=== PATIENT | female | born 1955 | race Caucasian/White ===

== ENCOUNTER 2017-10-09 17:06 | Inpatient (IN) | payer OTHER ==
[2017-10-09] MEDS: ONDANSETRON 4MG/2ML VIAL (J2405) IV (17:15)
[2017-10-09] MEDS: NS 1,000 ML IV (17:54)
[2017-10-09 17:58] LABS: BASO % 0.2 % (0.0-1.0); EOS # 0.1 10^3/uL (0.0-0.50); EOS % 0.5 % (0.0-3.0); HEMATOCRIT 34.3 % (36.0-47.0); HEMOGLOBIN 11.4 g/dl (12.0-16.0); IMMATURE GRANULOCYTE % 0.8 % (0-3.0); LYMPH # 3.4 10^3/uL (1.5-4.5); LYMPH % 15.8 % (24.0-44.0); MEAN CORPUSCULAR HEMOGLOBIN 28.1 pg (27.0-33.0); MEAN CORPUSCULAR HGB CONC 33.2 g/dl (32.0-36.5); MEAN CORPUSCULAR VOLUME 84.7 fl (80.0-96.0); MONO # 1.1 10^3/uL (0.0-0.8); NEUTROPHILS # 16.8 10^3/uL (1.8-7.7); NEUTROPHILS % 77.7 % (36.0-66.0); PLATELET COUNT, AUTOMATED 313 10^3/uL (150-450); RED BLOOD COUNT 4.05 10^6/uL (4.00-5.40); RED CELL DISTRIBUTION WIDTH 13.5 % (11.5-14.5); WHITE BLOOD COUNT 21.6 10^3/uL (4.0-10.0)
[2017-10-09] MEDS: PANTOPRAZOLE 40MG INJ (PROTONIX) (C9113) IV (18:05)
[2017-10-09] MEDS: MORPHINE 4 MG/ML 1ML VIAL (J2270) IV ×2 (18:15→22:45)
[2017-10-09] MEDS: GASTROGRAFIN SOLUTION 30ML PO ×2 (18:15→18:45)
[2017-10-09 18:20] LABS: ALBUMIN 3.1 GM/DL (3.2-5.2); ALBUMIN/GLOBULIN RATIO 0.86 (1.00-1.93); ALKALINE PHOSPHATASE 100 U/L (45-117); ALT/SGPT 14 U/L (12-78); ANION GAP 10 MEQ/L (8-16); AST/SGOT 19 U/L (7-37); BILIRUBIN,DIRECT < 0.1 MG/DL (0.0-0.2); BILIRUBIN,TOTAL 0.3 MG/DL (0.2-1.0); BLOOD UREA NITROGEN 29 MG/DL (7-18); CALCIUM LEVEL 8.6 MG/DL (8.8-10.2); CARBON DIOXIDE LEVEL 24 MEQ/L (21-32); CHLORIDE LEVEL 105 MEQ/L (98-107); CREATININE FOR GFR 1.11 MG/DL (0.55-1.30); GLOMERULAR FILTRATION RATE 52.7 (>45); GLUCOSE, FASTING 309 MG/DL (70-100); LIPASE 69 U/L (73-393); SODIUM LEVEL 139 MEQ/L (136-145); TOTAL PROTEIN 6.7 GM/DL (6.4-8.2)
[2017-10-09 18:21] LABS: PROTHROMBIN TIME 13.3 SECONDS (12.4-14.5)
[2017-10-09] MEDS ORDERED: AZTREONAM 2 GM in D5W MINI-BAG PLUS 50 ML IV (18:45)
[2017-10-09] MEDS: metroNIDAZOLE 500 MG in APPROPRIATE DILUENT 1 EA IV (18:45)
[2017-10-09] MEDS: AZTREONAM 2 GM in D5W MINI-BAG PLUS 50 ML IV (19:27)
[2017-10-09] MEDS ORDERED: ISOVUE-370 76% 100ML VIAL (Q9967) As Ordered (19:35)
[2017-10-09] MEDS: MONTELUKAST 10 MG TAB PO (21:00)
[2017-10-09] MEDS: HumaLOG INSULIN (NovoLOG) PER UNIT SC (21:00)
[2017-10-09] MEDS ORDERED: DEXTROSE 50% 50 ML SYRINGE IV (22:45)
[2017-10-09] MEDS ORDERED: GLUCOSE 4 GM CHEW TABLET PO (22:45)
[2017-10-09] MEDS ORDERED: GLUCAGON FOR INJ 1 MG VIAL (J1610) SC (22:45)
[2017-10-09 23:24] LABS: HEMATOCRIT 33.6 % (36.0-47.0); HEMOGLOBIN 10.9 g/dl (12.0-16.0)
[2017-10-09] MEDS: VENLAFAXINE **XR** 75MG CAPSULE PO (23:34)
[2017-10-09] MEDS: ATORVASTATIN 20 MG TAB PO (23:34)
[2017-10-09] MEDS: GABAPENTIN 300 MG CAP PO (23:34)
[2017-10-09] MEDS ORDERED: MEROPENEM INJ 1 GM in APPROPRIATE DILUENT 1 EA IV (23:45)
[2017-10-09 23:50] LABS: ERYTHROCYTE SEDIMENTATION RATE 50 mm/hr (0-30)
[2017-10-10 00:16] LABS: C REACTIVE PROTEIN QUANTITATIV 8.27 MG/DL (0.00-0.30)
[2017-10-10] MEDS: MEROPENEM INJ 1 GM in APPROPRIATE DILUENT 1 EA IV ×3 (01:49→16:58)
[2017-10-10] MEDS: MORPHINE 4 MG/ML 1ML VIAL (J2270) IV ×3 (01:54→16:31)
[2017-10-10] MEDS ORDERED: metroNIDAZOLE 500 MG in APPROPRIATE DILUENT 1 EA IV (02:00)
[2017-10-10] MEDS: NS 1,000 ML IV ×3 (04:49→20:07)
[2017-10-10 04:56] LABS: BASO # 0.1 10^3/uL (0.0-0.2); BASO % 0.3 % (0.0-1.0); EOS # 0.2 10^3/uL (0.0-0.50); EOS % 1.1 % (0.0-3.0); HEMOGLOBIN 10.9 g/dl (12.0-16.0); IMMATURE GRANULOCYTE % 0.5 % (0-3.0); LYMPH # 3.7 10^3/uL (1.5-4.5); LYMPH % 22.4 % (24.0-44.0); MEAN CORPUSCULAR HEMOGLOBIN 27.6 pg (27.0-33.0); MEAN CORPUSCULAR HGB CONC 32.1 g/dl (32.0-36.5); MEAN CORPUSCULAR VOLUME 86.1 fl (80.0-96.0); MONO # 0.9 10^3/uL (0.0-0.8); MONO % 5.7 % (0.0-5.0); NEUTROPHILS # 11.5 10^3/uL (1.8-7.7); PLATELET COUNT, AUTOMATED 301 10^3/uL (150-450); RED BLOOD COUNT 3.95 10^6/uL (4.00-5.40); RED CELL DISTRIBUTION WIDTH 13.7 % (11.5-14.5); WHITE BLOOD COUNT 16.5 10^3/uL (4.0-10.0)
[2017-10-10 05:08] LABS: ANION GAP 7 MEQ/L (8-16); BLOOD UREA NITROGEN 21 MG/DL (7-18); CALCIUM LEVEL 8.4 MG/DL (8.8-10.2); CARBON DIOXIDE LEVEL 28 MEQ/L (21-32); CHLORIDE LEVEL 109 MEQ/L (98-107); CREATININE FOR GFR 0.91 MG/DL (0.55-1.30); GLOMERULAR FILTRATION RATE > 60.0 (>45); GLUCOSE, FASTING 83 MG/DL (70-100); MAGNESIUM LEVEL 1.9 MG/DL (1.8-2.4); POTASSIUM SERUM 3.8 MEQ/L (3.5-5.1); SODIUM LEVEL 144 MEQ/L (136-145)
[2017-10-10] MEDS: HumaLOG INSULIN (NovoLOG) PER UNIT SC ×4 (06:49→20:11)
[2017-10-10 08:54] LABS: BEDSIDE GLUCOSE 139 MG/DL (80-115)
[2017-10-10] MEDS: FENOFIBRATE 145 MG TAB (TRICOR) PO (09:03)
[2017-10-10] MEDS: GABAPENTIN 300 MG CAP PO ×2 (09:03→20:40)
[2017-10-10] MEDS: PANTOPRAZOLE 40MG INJ (PROTONIX) (C9113) IV (09:03)
[2017-10-10] MEDS: SINEMET 25-100 MG TAB PO ×4 (09:03→20:39)
[2017-10-10] MEDS: oxyBUTYnin *DITROPAN XL* 5 MG TABCR PO (09:03)
[2017-10-10] MEDS: VENLAFAXINE **XR** 75MG CAPSULE PO ×2 (09:03→20:40)
[2017-10-10] MEDS: LEVEMIR (INSULIN DETEMIR) 1 UNITS/0.01ML SC ×2 (09:04→20:40)
[2017-10-10 09:21] LABS: BEDSIDE GLUCOSE 127 MG/DL (80-115)
[2017-10-10 12:04] LABS: BEDSIDE GLUCOSE 133 MG/DL (80-115)
[2017-10-10 17:13] LABS: BEDSIDE GLUCOSE 190 MG/DL (80-115)
[2017-10-10 18:05] LABS: HEMATOCRIT 30.8 % (36.0-47.0); HEMOGLOBIN 9.7 g/dl (12.0-16.0)
[2017-10-10] MEDS: ONDANSETRON 4MG/2ML VIAL (J2405) IV (20:07)
[2017-10-10] MEDS: MONTELUKAST 10 MG TAB PO (20:39)
[2017-10-10] MEDS: ATORVASTATIN 20 MG TAB PO (20:39)
[2017-10-10 23:47] LABS: BEDSIDE GLUCOSE 115 MG/DL (80-115)
[2017-10-11] MEDS: MEROPENEM INJ 1 GM in APPROPRIATE DILUENT 1 EA IV ×3 (02:16→17:26)
[2017-10-11 05:39] LABS: BASO % 0.4 % (0.0-1.0); EOS # 0.2 10^3/uL (0.0-0.50); HEMATOCRIT 31.1 % (36.0-47.0); HEMOGLOBIN 9.9 g/dl (12.0-16.0); IMMATURE GRANULOCYTE % 0.3 % (0-3.0); LYMPH # 3.4 10^3/uL (1.5-4.5); LYMPH % 32.4 % (24.0-44.0); MEAN CORPUSCULAR HEMOGLOBIN 27.8 pg (27.0-33.0); MEAN CORPUSCULAR HGB CONC 31.8 g/dl (32.0-36.5); MEAN CORPUSCULAR VOLUME 87.4 fl (80.0-96.0); MONO # 0.7 10^3/uL (0.0-0.8); MONO % 6.7 % (0.0-5.0); NEUTROPHILS # 6.1 10^3/uL (1.8-7.7); NEUTROPHILS % 58.2 % (36.0-66.0); PLATELET COUNT, AUTOMATED 274 10^3/uL (150-450); RED BLOOD COUNT 3.56 10^6/uL (4.00-5.40); RED CELL DISTRIBUTION WIDTH 13.6 % (11.5-14.5); WHITE BLOOD COUNT 10.5 10^3/uL (4.0-10.0)
[2017-10-11 05:54] LABS: ANION GAP 5 MEQ/L (8-16); BLOOD UREA NITROGEN 9 MG/DL (7-18); CALCIUM LEVEL 7.9 MG/DL (8.8-10.2); CARBON DIOXIDE LEVEL 29 MEQ/L (21-32); CHLORIDE LEVEL 112 MEQ/L (98-107); GLOMERULAR FILTRATION RATE > 60.0 (>45); GLUCOSE, FASTING 67 MG/DL (70-100); POTASSIUM SERUM 3.8 MEQ/L (3.5-5.1); SODIUM LEVEL 146 MEQ/L (136-145)
[2017-10-11] MEDS: NS 1,000 ML IV ×2 (06:07→17:27)
[2017-10-11] MEDS: HumaLOG INSULIN (NovoLOG) PER UNIT SC ×4 (07:30→20:42)
[2017-10-11] MEDS: oxyBUTYnin *DITROPAN XL* 5 MG TABCR PO (09:00)
[2017-10-11] MEDS: FENOFIBRATE 145 MG TAB (TRICOR) PO (09:00)
[2017-10-11] MEDS: GABAPENTIN 300 MG CAP PO ×2 (09:00→20:40)
[2017-10-11] MEDS: SINEMET 25-100 MG TAB PO ×4 (09:51→20:40)
[2017-10-11] MEDS: PANTOPRAZOLE 40MG INJ (PROTONIX) (C9113) IV (09:51)
[2017-10-11] MEDS: LEVEMIR (INSULIN DETEMIR) 1 UNITS/0.01ML SC ×2 (09:52→20:40)
[2017-10-11] MEDS: VENLAFAXINE **XR** 75MG CAPSULE PO ×2 (09:52→20:40)
[2017-10-11] MEDS: ACETAMINOPHEN TAB 650MG DOSE (2X325MG) PO (10:34)
[2017-10-11 11:35] LABS: BEDSIDE GLUCOSE 114 MG/DL (80-115)
[2017-10-11 16:53] LABS: BEDSIDE GLUCOSE 110 MG/DL (80-115)
[2017-10-11] MEDS ORDERED: SENOKOT S TAB PO (17:45)
[2017-10-11 20:39] LABS: BEDSIDE GLUCOSE 183 MG/DL (80-115)
[2017-10-11] MEDS: ATORVASTATIN 20 MG TAB PO (20:39)
[2017-10-11] MEDS: MONTELUKAST 10 MG TAB PO (20:40)
[2017-10-12] MEDS: MEROPENEM INJ 1 GM in APPROPRIATE DILUENT 1 EA IV (03:24)
[2017-10-12 05:24] LABS: BASO # 0.1 10^3/uL (0.0-0.2); BASO % 0.6 % (0.0-1.0); EOS # 0.2 10^3/uL (0.0-0.50); EOS % 2.5 % (0.0-3.0); HEMATOCRIT 33.3 % (36.0-47.0); HEMOGLOBIN 10.7 g/dl (12.0-15.5); IMMATURE GRANULOCYTE % 0.3 % (0-3.0); LYMPH # 3.1 10^3/uL (1.5-4.5); LYMPH % 33.1 % (24.0-44.0); MEAN CORPUSCULAR HEMOGLOBIN 27.7 pg (27.0-33.0); MEAN CORPUSCULAR HGB CONC 32.1 g/dl (32.0-36.5); MEAN CORPUSCULAR VOLUME 86.3 fl (80.0-96.0); MONO # 0.7 10^3/uL (0.0-0.8); MONO % 7.5 % (0.0-5.0); NEUTROPHILS # 5.2 10^3/uL (1.8-7.7); PLATELET COUNT, AUTOMATED 272 10^3/uL (150-450); RED BLOOD COUNT 3.86 10^6/uL (4.00-5.40); RED CELL DISTRIBUTION WIDTH 13.3 % (11.5-14.5); WHITE BLOOD COUNT 9.3 10^3/uL (4.0-10.0)
[2017-10-12 05:41] LABS: ANION GAP 4 MEQ/L (8-16); BLOOD UREA NITROGEN 12 MG/DL (7-18); CALCIUM LEVEL 8.5 MG/DL (8.8-10.2); CARBON DIOXIDE LEVEL 29 MEQ/L (21-32); CHLORIDE LEVEL 110 MEQ/L (98-107); CREATININE FOR GFR 0.83 MG/DL (0.55-1.30); GLOMERULAR FILTRATION RATE > 60.0 (>45); GLUCOSE, FASTING 195 MG/DL (70-100); MAGNESIUM LEVEL 1.8 MG/DL (1.8-2.4); POTASSIUM SERUM 4.1 MEQ/L (3.5-5.1); SODIUM LEVEL 143 MEQ/L (136-145)
[2017-10-12] MEDS: NS 1,000 ML IV (05:56)
[2017-10-12] MEDS: HumaLOG INSULIN (NovoLOG) PER UNIT SC ×4 (08:15→21:16)
[2017-10-12] MEDS: PANTOPRAZOLE 40MG INJ (PROTONIX) (C9113) IV (08:15)
[2017-10-12] MEDS: VENLAFAXINE **XR** 75MG CAPSULE PO ×2 (08:16→20:43)
[2017-10-12] MEDS: GABAPENTIN 300 MG CAP PO ×2 (08:16→20:43)
[2017-10-12] MEDS: oxyBUTYnin *DITROPAN XL* 5 MG TABCR PO (08:16)
[2017-10-12] MEDS: FENOFIBRATE 145 MG TAB (TRICOR) PO (08:16)
[2017-10-12] MEDS: SINEMET 25-100 MG TAB PO ×4 (08:16→20:43)
[2017-10-12] MEDS: LEVEMIR (INSULIN DETEMIR) 1 UNITS/0.01ML SC ×2 (08:17→21:16)
[2017-10-12 11:58] LABS: BEDSIDE GLUCOSE 243 MG/DL (80-115)
[2017-10-12] MEDS: CIPROFLOXACIN 500 MG TAB PO ×2 (12:43→17:15)
[2017-10-12] MEDS: LACTOBACILLUS ACIDOPHILUS CAP (BACID) PO ×2 (12:43→17:14)
[2017-10-12] MEDS: metroNIDAZOLE (FLAGYL) 500 MG TAB PO ×3 (12:43→20:43)
[2017-10-12 16:50] LABS: BEDSIDE GLUCOSE 216 MG/DL (80-115)
[2017-10-12] MEDS: ATORVASTATIN 20 MG TAB PO (20:43)
[2017-10-12] MEDS: MONTELUKAST 10 MG TAB PO (20:43)
[2017-10-12 22:01] LABS: BEDSIDE GLUCOSE 299 MG/DL (80-115)
[2017-10-13] MEDS: CIPROFLOXACIN 500 MG TAB PO (05:27)
[2017-10-13 06:53] LABS: BASO % 0.9 % (0.0-1.0); EOS # 0.3 10^3/uL (0.0-0.50); EOS % 3.9 % (0.0-3.0); HEMATOCRIT 35.3 % (36.0-47.0); HEMOGLOBIN 11.5 g/dl (12.0-15.5); IMMATURE GRANULOCYTE % 0.6 % (0-3.0); LYMPH # 2.8 10^3/uL (1.5-4.5); LYMPH % 35.1 % (24.0-44.0); MEAN CORPUSCULAR HEMOGLOBIN 27.6 pg (27.0-33.0); MEAN CORPUSCULAR HGB CONC 32.6 g/dl (32.0-36.5); MEAN CORPUSCULAR VOLUME 84.7 fl (80.0-96.0); MONO # 0.7 10^3/uL (0.0-0.8); MONO % 8.2 % (0.0-5.0); NEUTROPHILS # 4.1 10^3/uL (1.8-7.7); NEUTROPHILS % 51.3 % (36.0-66.0); PLATELET COUNT, AUTOMATED 300 10^3/uL (150-450); RED BLOOD COUNT 4.17 10^6/uL (4.00-5.40); WHITE BLOOD COUNT 7.9 10^3/uL (4.0-10.0)
[2017-10-13 06:54] LABS: BASO # 0.1 10^3/uL (0.0-0.2)
[2017-10-13 07:13] LABS: ANION GAP 5 MEQ/L (8-16); BLOOD UREA NITROGEN 20 MG/DL (7-18); CALCIUM LEVEL 9.3 MG/DL (8.8-10.2); CARBON DIOXIDE LEVEL 31 MEQ/L (21-32); CHLORIDE LEVEL 105 MEQ/L (98-107); CREATININE FOR GFR 0.93 MG/DL (0.55-1.30); GLOMERULAR FILTRATION RATE > 60.0 (>45); GLUCOSE, FASTING 215 MG/DL (70-100); MAGNESIUM LEVEL 1.7 MG/DL (1.8-2.4); POTASSIUM SERUM 4.4 MEQ/L (3.5-5.1); SODIUM LEVEL 141 MEQ/L (136-145)
[2017-10-13] MEDS: PANTOPRAZOLE 40MG INJ (PROTONIX) (C9113) IV (08:33)
[2017-10-13] MEDS: HumaLOG INSULIN (NovoLOG) PER UNIT SC ×3 (08:33→13:02)
[2017-10-13] MEDS: LEVEMIR (INSULIN DETEMIR) 1 UNITS/0.01ML SC (08:33)
[2017-10-13] MEDS: SINEMET 25-100 MG TAB PO ×2 (08:34→13:01)
[2017-10-13] MEDS: LACTOBACILLUS ACIDOPHILUS CAP (BACID) PO ×2 (08:34→12:30)
[2017-10-13] MEDS: MAGNESIUM OXIDE 400 MG TAB (MAG-OX) PO (08:34)
[2017-10-13] MEDS: oxyBUTYnin *DITROPAN XL* 5 MG TABCR PO (08:34)
[2017-10-13] MEDS: VENLAFAXINE **XR** 75MG CAPSULE PO (08:34)
[2017-10-13] MEDS: FENOFIBRATE 145 MG TAB (TRICOR) PO (08:34)
[2017-10-13] MEDS: GABAPENTIN 300 MG CAP PO (08:34)
[2017-10-13] MEDS: metroNIDAZOLE (FLAGYL) 500 MG TAB PO (08:34)
[2017-10-14 03:22] LABS: BEDSIDE GLUCOSE 296 MG/DL (80-115)
[2017-10-17 00:06] LABS: O+P EXAM Final report (.)
== END 2017-10-13 13:25 | disposition home or self-care (01) | DRG 248 ==
LOC: M MS5PR 10-12 20:20 → M PCU 10-10 14:40 → M ED 17:06 → M PCU 10-10 17:20 → M ED INP 23:37
DX: A04.9 Bacterial intestinal infection, unspecified (principal); G20 Parkinson's disease; E11.9 Type 2 diabetes mellitus without complications; F32.9 Major depressive disorder, single episode, unspecified; I10 Essential (primary) hypertension; D72.829 Elevated white blood cell count, unspecified; K22.70 Barrett's esophagus without dysplasia; K62.5 Hemorrhage of anus and rectum; M79.7 Fibromyalgia; G47.33 Obstructive sleep apnea (adult) (pediatric); E78.5 Hyperlipidemia, unspecified; M19.90 Unspecified osteoarthritis, unspecified site; J45.909 Unspecified asthma, uncomplicated; G43.909 Migraine, unspecified, not intractable, without status migrainosus; K21.9 Gastro-esophageal reflux disease without esophagitis; Z86.73 Personal history of transient ischemic attack (TIA), and cerebral infarction without residual deficits; K57.30 Diverticulosis of large intestine without perforation or abscess without bleeding; N39.3 Stress incontinence (female) (male); Z79.82 Long term (current) use of aspirin; Z79.899 Other long term (current) drug therapy; E78.00 Pure hypercholesterolemia, unspecified; E66.9 Obesity, unspecified; Z88.0 Allergy status to penicillin; Z88.2 Allergy status to sulfonamides; Z88.8 Allergy status to other drugs, medicaments and biological substances; Z88.5 Allergy status to narcotic agent; Z91.038 Other insect allergy status; Z91.040 Latex allergy status; Z88.1 Allergy status to other antibiotic agents

== ENCOUNTER 2017-10-29 12:28 | Emergency (ER) | payer OTHER ==
[2017-10-29 13:21] LABS: BASO # 0.1 10^3/uL (0.0-0.2); BASO % 0.5 % (0.0-1.0); EOS # 0.1 10^3/uL (0.0-0.50); EOS % 0.7 % (0.0-3.0); HEMOGLOBIN 12.1 g/dl (12.0-15.5); IMMATURE GRANULOCYTE % 0.5 % (0-3.0); LYMPH # 3.3 10^3/uL (1.5-4.5); LYMPH % 22.4 % (24.0-44.0); MEAN CORPUSCULAR HEMOGLOBIN 27.4 pg (27.0-33.0); MEAN CORPUSCULAR HGB CONC 32.7 g/dl (32.0-36.5); MEAN CORPUSCULAR VOLUME 83.7 fl (80.0-96.0); MONO # 0.8 10^3/uL (0.0-0.8); MONO % 5.1 % (0.0-5.0); NEUTROPHILS # 10.5 10^3/uL (1.8-7.7); NEUTROPHILS % 70.8 % (36.0-66.0); PLATELET COUNT, AUTOMATED 387 10^3/uL (150-450); RED BLOOD COUNT 4.42 10^6/uL (4.00-5.40); RED CELL DISTRIBUTION WIDTH 13.2 % (11.5-14.5); WHITE BLOOD COUNT 14.8 10^3/uL (4.0-10.0)
[2017-10-29] MEDS: NS 1,000 ML IV ×2 (13:23)
[2017-10-29] MEDS: MORPHINE 4 MG/ML 1ML VIAL/SYRINGE (J2270) IV ×4 (13:24→18:09)
[2017-10-29 13:33] LABS: INR 0.97
[2017-10-29 13:34] LABS: PARTIAL THROMBOPLASTIN TIME 26.3 SECONDS (26.8-37.9)
[2017-10-29 13:42] LABS: ALBUMIN 3.3 GM/DL (3.2-5.2); ALBUMIN/GLOBULIN RATIO 0.79 (1.00-1.93); ALKALINE PHOSPHATASE 89 U/L (45-117); ALT/SGPT 10 U/L (12-78); ANION GAP 9 MEQ/L (8-16); AST/SGOT 35 U/L (7-37); BILIRUBIN,DIRECT < 0.1 MG/DL (0.0-0.2); BILIRUBIN,TOTAL 0.4 MG/DL (0.2-1.0); BLOOD UREA NITROGEN 21 MG/DL (7-18); CALCIUM LEVEL 9.3 MG/DL (8.8-10.2); CARBON DIOXIDE LEVEL 25 MEQ/L (21-32); CHLORIDE LEVEL 106 MEQ/L (98-107); CREATININE FOR GFR 0.97 MG/DL (0.55-1.30); GLOMERULAR FILTRATION RATE > 60.0 (>45); GLUCOSE, FASTING 154 MG/DL (70-100); LIPASE 80 U/L (73-393); SODIUM LEVEL 140 MEQ/L (136-145); TOTAL PROTEIN 7.5 GM/DL (6.4-8.2)
[2017-10-29] MEDS: GASTROGRAFIN SOLUTION 30ML PO ×4 (14:29→14:55)
[2017-10-29 14:48] LABS: KETONE, URINE AUTO RFX TRACE mg/dL (NEGATIVE); MUCUS, URINE RFX SMALL (NEGATIVE); NITRITE, URINE AUTO RFX NEGATIVE (NEGATIVE); RBC, URINE AUTO RFX 1 /HPF (0-3); SPECIFIC GRAVITY UR AUTO RFX 1.023 (1.002-1.035); SQUAM EPITHELIAL CELL UR AURFX 10 /HPF (0-6)
[2017-10-29 14:50] LABS: LEUKOCYTE ESTERASE UR AUTO RFX 3+ (NEGATIVE); WBC, URINE AUTO RFX 21 /HPF (0-3)
[2017-10-29] MEDS ORDERED: ISOVUE-370 76% 100ML VIAL (Q9967) As Ordered ×2 (15:32)
[2017-10-29] MEDS: CIPROFLOXACIN 400 MG in APPROPRIATE DILUENT 1 EA IV (17:10)
[2017-10-29] MEDS: metroNIDAZOLE (FLAGYL) 500 MG TAB PO ×2 (17:18)
== END 2017-10-29 19:04 | disposition home or self-care (01) ==
LOC: M ED 12:28
DX: K52.9 Noninfective gastroenteritis and colitis, unspecified (principal); K62.5 Hemorrhage of anus and rectum; E11.9 Type 2 diabetes mellitus without complications; I10 Essential (primary) hypertension; J45.909 Unspecified asthma, uncomplicated; G20 Parkinson's disease; E78.9 Disorder of lipoprotein metabolism, unspecified; N39.3 Stress incontinence (female) (male); M19.90 Unspecified osteoarthritis, unspecified site; F33.9 Major depressive disorder, recurrent, unspecified; M79.7 Fibromyalgia; Z79.899 Other long term (current) drug therapy; Z79.4 Long term (current) use of insulin; Z79.82 Long term (current) use of aspirin; Z87.19 Personal history of other diseases of the digestive system; Z98.890 Other specified postprocedural states; Z88.1 Allergy status to other antibiotic agents; Z88.5 Allergy status to narcotic agent; Z91.040 Latex allergy status; Z91.030 Bee allergy status; Z88.0 Allergy status to penicillin; Z88.8 Allergy status to other drugs, medicaments and biological substances
CPT/HCPCS: J2270

== ENCOUNTER → 2019-02-14 | Outpatient (CLI) | payer MEDICARE, MEDICAID ==
[~2019-02-14] MED LIST: ALBU83IN INH; ASPI81TA60 PO; ASPI81TA85 PO; ATEN25TA PO; ATOR80TA59 PO; BACITAB PO; BASA100I SC; CARB1TAB97 PO; CARB25TA18 PO; CARB25TA9 PO; CIPR-249 PO; CLEO300C2 PO; EFFE75CA2 PO; EPIP0.3I2 INJ; FE G325T PO; FENO160T10 PO; FISH1000 PO; FLAG500T PO; FLON0.054; FLUO0.024 EXT; GABA-843 PO; GLIP5TAB8 PO; IBUP-1022 PO; IMOD2TAB16 PO; INSUHUMDS SC; INSULANT SC; JANU100T PO; LOSA50TA88 PO; MAGN400C2 PO; METO1TAB32 PO; MONT10TA2 PO; MUCI60TA7 PO; NOVOINJ SC; OMEP40CA2 PO; OXYB5TAB10 PO; OXYB5TAB2 PO; TRAD5TAB PO; TYLE325T5 PO; ULTR50TA8 PO
--- NOTE | 2019-02-14 14:42 | REP ---
Bilateral carotid artery duplex ultrasound: Peak flow velocity analysis: RIGHT LEFT ICA Peak flow velocity cm/sec 84.2 100 ICA Diastolic flow velocity cm/sec 22.2 23.6 ICA/CCA Ratio 1.03 0.92 ECA Peak flow velocity cm/sec 79.8 139 CCA Peak flow velocity cm/sec 79.8 108 There is shallow atheromatous plaque in the bulbs bilaterally extending into the right and left internal carotid arteries and into the right and left external carotid arteries bilaterally. The peak flow velocities are normal bilaterally. The findings indicate that there is less than 50% narrowing bilaterally. There is no significant stenosis on the right on the left. There is antegrade flow in the vertebral arteries bilaterally. Electronically Signed by Roshan Henson MD 02/14/2019 02:33 P
== END ==
LOC: M RAD 13:20
PROVIDERS: ATTEND Psychiatry & Neurology Neurology
DX: I65.23 Occlusion and stenosis of bilateral carotid arteries (principal)

== ENCOUNTER 2019-02-22 17:37 | Emergency (ER) | payer MEDICARE, MEDICAID ==
[~2019-02-22] VITALS: Ht 162.6 cm; Wt 97.7 kg
[2019-02-22 17:37] VITALS: BP 144/76
[~2019-02-22 17:37] MED LIST changes: -CARB25TA18 PO; -NOVOINJ SC
[2019-02-22] MEDS ORDERED: NOVOINJ SC (18:24)
[2019-02-22] MEDS ORDERED: CARB25TA18 PO (18:24)
[2019-02-22] MEDS ORDERED: DERMABOND TOPICAL SKIN ADHESIVE TOP ONE (18:45)
== END 2019-02-22 19:23 | disposition home or self-care (01) ==
LOC: M ED 17:37
DX: S61.316A Laceration without foreign body of right little finger with damage to nail, initial encounter (principal); W26.8XXA Contact with other sharp object(s), not elsewhere classified, initial encounter; Y92.018 Other place in single-family (private) house as the place of occurrence of the external cause; I10 Essential (primary) hypertension; E11.9 Type 2 diabetes mellitus without complications; J45.909 Unspecified asthma, uncomplicated; G20 Parkinson's disease; F33.9 Major depressive disorder, recurrent, unspecified; E78.00 Pure hypercholesterolemia, unspecified; K21.9 Gastro-esophageal reflux disease without esophagitis; Z79.899 Other long term (current) drug therapy; Z79.4 Long term (current) use of insulin; Z79.82 Long term (current) use of aspirin; Z88.0 Allergy status to penicillin; Z88.1 Allergy status to other antibiotic agents; Z88.2 Allergy status to sulfonamides; Z88.5 Allergy status to narcotic agent; Z88.8 Allergy status to other drugs, medicaments and biological substances; Z91.030 Bee allergy status; Z91.048 Other nonmedicinal substance allergy status

== ENCOUNTER 2020-08-18 14:32 | Inpatient (IN) | payer MEDICARE, MEDICAID ==
[~2020-08-18] VITALS: Ht 160 cm; Wt 106.8 kg
[~2020-08-18 14:32] MED LIST changes: -ASPI81TA85 PO; +ASPI81TA86 PO; +CARB25TA18 PO; +EPIP0.3I2 IM; -EPIP0.3I2 INJ; -FLUO0.024 EXT; +FLUO15CR3 EXT; +GABA-282 PO; -GABA-843 PO; +MONT10TA10 PO; -MONT10TA2 PO; +NOVOINJ SC; -OMEP40CA2 PO; +OMEP40CA97 PO; +OXYB-54 PO; -OXYB5TAB2 PO
[2020-08-18 15:24] LABS: BASO # 0.1 10^3/uL (0.0-0.2); BASO % 0.5 % (0.0-1.0); EOS # 0.2 10^3/uL (0.0-0.5); HEMATOCRIT 38.7 % (36.0-47.0); HEMOGLOBIN 12.2 g/dl (12.0-15.5); LYMPH # 4.1 10^3/uL (1.5-5.0); LYMPH % 35.2 % (24.0-44.0); MEAN CORPUSCULAR HEMOGLOBIN 27.4 pg (27.0-33.0); MEAN CORPUSCULAR HGB CONC 31.5 g/dl (32.0-36.5); MONO # 0.8 10^3/uL (0.0-0.8); MONO % 6.8 % (0.0-5.0); NEUTROPHILS # 6.3 10^3/uL (1.5-8.5); NEUTROPHILS % 54.9 % (36.0-66.0); PLATELET COUNT, AUTOMATED 304 10^3/uL (150-450); RED BLOOD COUNT 4.45 10^6/uL (4.00-5.40); WHITE BLOOD COUNT 11.5 10^3/uL (4.0-10.0)
[2020-08-18 15:57] LABS: ALBUMIN 3.3 GM/DL (3.2-5.2); ALT/SGPT 17 U/L (12-78); BILIRUBIN,DIRECT < 0.1 MG/DL (0.0-0.2); BILIRUBIN,TOTAL 0.2 MG/DL (0.2-1.0); BLOOD UREA NITROGEN 20 MG/DL (7-18); CARBON DIOXIDE LEVEL 24 MEQ/L (21-32); CHLORIDE LEVEL 104 MEQ/L (98-107); CREATININE FOR GFR 1.08 MG/DL (0.55-1.30); GLUCOSE, FASTING 324 MG/DL (70-100); LIPASE 105 U/L (73-393); POTASSIUM SERUM 4.6 MEQ/L (3.5-5.1); SODIUM LEVEL 137 MEQ/L (136-145); TOTAL PROTEIN 7.5 GM/DL (6.4-8.2)
[2020-08-18] MEDS ORDERED: NS 1,000 ML IV ONE (16:30)
[2020-08-18] MEDS ORDERED: ISOVUE-370 76% 100ML VIAL As Ordered ONE (16:54)
[2020-08-18] MEDS ORDERED: CIPROFLOXACIN 400 MG in IV 1 EA IV ONE (18:00)
--- NOTE | 2020-08-18 19:06 | REPVR ---
PROCEDURE INFORMATION: Exam: CT Abdomen And Pelvis With Contrast Exam date and time: 08/18/2020 6:41 PM Age: 64 years old Clinical indication: Fever; Additional info: Dysuria, fevers R/O pyelo TECHNIQUE: Imaging protocol: Computed tomography of the abdomen and pelvis with contrast. Radiation optimization: All CT scans at this facility use at least one of these dose optimization techniques: automated exposure control; mA and/or kV adjustment per patient size (includes targeted exams where dose is matched to clinical indication); or iterative reconstruction. Contrast material: ISOVUE 370; Contrast volume: 100 ml; Contrast route: INTRAVENOUS (IV); COMPARISON: CT ABD/PEL W/IV ORAL CONTRAS 10/29/2017 3:38 PM FINDINGS: Liver: There is a diffuse decrease in hepatic parenchymal density, consistent with steatosis. Gallbladder and bile ducts: Normal. No calcified stones. No ductal dilation. Pancreas: There is diffuse pancreatic atrophy. Spleen: Normal. No splenomegaly. Adrenal glands: Normal. No mass. Kidneys and ureters: Sub cm simple cyst left kidney. No follow-up suggested. Stomach and bowel: Mild diverticulosis is present in the distal colon. No diverticulitis. There is increased feces throughout the colon consistent with constipation. Appendix: No evidence of appendicitis. Intraperitoneal space: Unremarkable. No free air. No significant fluid collection. Vasculature: The aortoiliac vessels demonstrate mild atherosclerotic calcification. Lymph nodes: Unremarkable. No enlarged lymph nodes. Urinary bladder: There is thickening of the bladder wall with perivesicular inflammatory changes consistent with acute cystitis. Reproductive: There has been a hysterectomy. Bones/joints: Mild central spinal stenosis L3-L4 and moderate to severe central spinal stenosis L4-L5. Bilateral facet joint arthropathy L5-S1. Soft tissues: Small incisional hernia demonstrated in the lower mid abdomen. IMPRESSION: 1. There is a diffuse decrease in hepatic parenchymal density, consistent with steatosis. 2. There is diffuse pancreatic atrophy. 3. Mild diverticulosis is present in the distal colon. No diverticulitis. 4. There has been a hysterectomy. 5. There is thickening of the bladder wall with perivesicular inflammatory changes consistent with acute cystitis. 6. There is increased feces throughout the colon consistent with constipation. COMMENTS: Consistent with the [employer]'s Incidental Findings Committee white paper (J Am Mike Radiol 2018): Any incidental renal lesion less than 1 cm or classified as too small to characterize, or any incidental cystic renal lesion characterized as simple-appearing, is likely benign. No follow-up imaging is recommended for these lesions per consensus recommendations based on imaging criteria. Electronically signed by: Conrado Shields On 08/18/2020 19:06:05 PM
[2020-08-18] MEDS ORDERED: ONDANSETRON 4MG/2ML VIAL IV ONE (19:45)
[2020-08-18] MEDS ORDERED: ACETAMINOPHEN TAB 650MG DOSE (2X325MG) PO PRN (21:30)
[2020-08-18] MEDS ORDERED: VASC1CAP2 PO (21:39)
[2020-08-18] MEDS ORDERED: VENL75CA2 PO (21:39)
[2020-08-18] MEDS ORDERED: SINE25TA5 PO (21:39)
[2020-08-18] MEDS ORDERED: ALBU83IN INH (21:39)
[2020-08-18] MEDS ORDERED: OMEP-221 PO (21:39)
[2020-08-18] MEDS ORDERED: NORT25CA2 PO (21:39)
[2020-08-18] MEDS ORDERED: ASPI-161 PO (21:39)
[2020-08-18] MEDS ORDERED: KETO10TAB PO (21:39)
[2020-08-18] MEDS ORDERED: TOPI100T9 PO (21:39)
[2020-08-18] MEDS ORDERED: FLON1SPR (21:39)
[2020-08-18] MEDS ORDERED: TOPR25TA PO (21:39)
[2020-08-18 22:47] VITALS: BP 132/92
--- NOTE | 2020-08-18 23:27 | HPEPDOC ---
[facility] Medical History & Physical Date of Admission Aug 18, 2020 Date of Service: Aug 18, 2020 History and Physical CHIEF COMPLAINT: Dysuria HISTORY OF PRESENT ILLNESS: Patient is 64 year old female with PMH Parkinson's disease, IDDM, Asthma, GERD, HTN, HLD, MEIR and CVA sent into the ER by her PCP for IV abx for UTI. Patient has been having dysuria for 3-4 weeks already with subsequent development of fever to 102F last night and R. sided CVA tenderness. She states that she is allergic to all available PO antibiotics and told by her PCP to come to the hospital for IV Abx treatment. Urine culture from outside shows Klebsiella >100,000 and appear to be pansensitive. Patient is very anxious about her allergy profile and prefer to stay while she is being treated. Denies any other physical complaints. PAST MEDICAL HISTORY: Refer to [facility] PAST SURGICAL HISTORY: Cataract surgery Appendectomy L. TKR carpal tunnel surgery sinus surgery L. eye removal SOCIAL HISTORY: Denies tobacco, alcohol or illicit drug use. FAMILY HISTORY: Father- kidney stone Mother- Lung cancer ALLERGIES: Please see below. REVIEW OF SYSTEMS: 10 point review of system negative except as stated in [facility] HOME MEDICATIONS: Please see below. PHYSICAL EXAMINATION: General: No acute distress, Alert Eyes: EOMI in R. eye, L. eye prosthesis. HENT: Atraumatic Cardiovascular: Normal rate, normal rhythm. Pulmonary: Clear to auscultation b/l, no wheezing MSK: R. sided CVA tenderness, suprapubic tenderness. GI: Soft, nontender, nondistended Skin: Warm and dry Neuro: CN grossly intact. No focal deficits. Strengths equal b/l. Psych: oriented x 3 LABORATORY DATA: See below. IMAGING: CT Abdomen/pelvis: 1. There is a diffuse decrease in hepatic parenchymal density, consistent with steatosis. 2. There is diffuse pancreatic atrophy. 3. Mild diverticulosis is present in the distal colon. No diverticulitis. 4. There has been a hysterectomy. 5. There is thickening of the bladder wall with perivesicular inflammatory changes consistent with acute cystitis. 6. There is increased feces throughout the colon consistent with constipation. MICROBIOLOGY: Please see below. ASSESSMENT AND PLAN: 1. Klebsiella UTI/pyelonephritis dx through PCP - Reportedly allergic to all available PO medications but tolerates IV ciprofloxacin. - Unsure if patient has cross reactivity to other agents such as rocephin. Will continue with Cipro 400mg q12h for 5-7 days. - Case management consulted to see if home infusions can be arranged in AM and patient can do that at home. 2. IDDM - c/w levemir equivalent to patient's home lantus dose. 65 units AM and 75 units HS. - Consistent carbohydrate diet. - insulin sliding scale with hypoglycemic protocol. 3. Parkinson's disease - Resume sinemet home dose. 4. Asthma - albuterol PRN 5. GERD - PPI 6. HTN - c/w metoprolol. 7. MEIR - Home CPAP if available. 8. hs CVA - c/w ASA and statin. DVT ppx: Lovenox and SCD. Code status: Full code Vital Signs Vital Signs Date Time Temp Pulse Resp B/P (MAP) Pulse Ox O2 Delivery O2 Flow Rate FiO2 08/18/20 22:34 97.2 102 18 140/65 (90) 95 Room Air Laboratory Data Labs 24H Laboratory Tests 2 08/18/20 15:04: Immature Granulocyte % (Auto) 0.6, Neutrophils (%) (Auto) 54.9, Lymphocytes (%) (Auto) 35.2, Monocytes (%) (Auto) 6.8H, Eosinophils (%) (Auto) 2.0, Basophils (%) (Auto) 0.5, Neutrophils # (Auto) 6.3, Lymphocytes # (Auto) 4.1, Monocytes # (Auto) 0.8, Eosinophils # (Auto) 0.2, Basophils # (Auto) 0.1, Nucleated Red Blood Cells % (auto) 0.0, Urine Color YELLOW, Urine Appearance CLOUDYH, Urine pH 7.0, Urine Specific [place] 1.013, Urine Protein 1+H, Urine Glucose (UA) 3+H, Urine Ketones TRACEH, Urine Blood NEGATIVE, Urine Nitrite POSITIVEH, Urine Bilirubin NEGATIVE, Urine Urobilinogen 0.2, Urine Leukocyte Esterase 3+H, Urine WBC (Auto) TNTCH, Urine RBC (Auto) 3, Urine Hyaline Casts (Auto) 0, Urine Bacteria (Auto) 2+H, Urine Squamous Epithelial Cells 0, Urine Sperm (Auto) , Anion Gap 9, Glomerular Filtration Rate 54.0, Calcium Level 9.0, Total Bilirubin 0.2, Direct Bilirubin < 0.1, Aspartate Amino Transf (AST/SGOT) 53H, Alanine Aminotransferase (ALT/SGPT) 17, Alkaline Phosphatase 138H, Total Protein 7.5, Albumin 3.3, Albumin/Globulin Ratio 0.8L, Lipase 105 08/18/20 19:03: POC Lactate (Misc Panel) 1.34 08/18/20 21:17: Coronavirus (COVID-19)(PCR) NEGATIVE 08/18/20 23:06: Bedside Glucose (Misc Panel) 128H CBC/BMP Laboratory Tests 08/18/20 15:04 Microbiology Microbiology 08/18/20 Urine Culture, Received Pending Home Medications Scheduled Aspirin (Aspirin EC) 81 Mg Tablet.dr, 81 MG PO QHS Atorvastatin Calcium (Atorvastatin Calcium) 80 Mg Tab, 80 MG PO QHS Carbidopa/Levodopa (Sinemet 25-100 mg Tablet) 1 Each Tablet, 2 TAB PO TID 0800, 1300, 1800 Gabapentin (Gabapentin) 300 Mg Cap, 600 MG PO BID Glipizide (Glipizide) 5 Mg Tab, 5 MG PO DAILY Icosapent Ethyl (Vascepa) 1 Gm Capsule, 2 GM PO BID Insulin Aspart (Novolog) 100 Unit/1 Ml Cartridge, 10 UNITS SC AC PLUS SLIDING SCALE Insulin Glargine,Hum.rec.anlog (Basaglar Kwikpen U-100) 100 Unit/Ml Inj, 65 UNIT SC DAILY Insulin Glargine,Hum.rec.anlog (Basaglar Kwikpen U-100) 100 Unit/Ml Inj, 75 UNIT SC QHS Losartan Potassium (Losartan Potassium) 50 Mg Tab, 50 MG PO DAILY Magnesium Oxide (Magnesium) 400 Mg Cap, 800 MG PO QHS Metoprolol Succinate (Toprol Xl) 25 Mg Tab.er.24h, 25 MG PO QHS Montelukast Sodium (Montelukast Sodium) 10 Mg Tab, 10 MG PO QHS Nortriptyline HCl (Nortriptyline HCl) 25 Mg Capsule, 25 MG PO QHS Omeprazole (Omeprazole) 40 Mg Capsule.dr, 40 MG PO DAILY Oxybutynin Chloride (Oxybutynin Chloride ER) 5 Mg Tab, 5 MG PO DAILY Sitagliptin Phosphate (Januvia) 100 Mg Tab, 100 MG PO DAILY Topiramate (Topiramate) 100 Mg Tablet, 100 MG PO QHS Venlafaxine HCl (Venlafaxine HCl ER) 75 Mg Cap.er.24h, 75 MG PO BID Scheduled PRN Albuterol Sulf (Albuterol Sulfate) 2.5 Mg/3 Ml Vial.neb, 2.5 MG INH Q4H PRN for SHORTNESS OF BREATH Epinephrine (Epipen 2-[place]) 0.3 Mg/0.3 Ml Inj, 0.3 MG IM ASDIRECTED PRN for ANAPHALAXIS Fluticasone Propionate (Flonase Allergy Relief) 9.9 Ml [place].susp, 1 SPRAY NA BID PRN for NASAL CONGESTION Ketorolac Tromethamine (Ketorolac Tromethamine) 10 Mg Tablet, 10 MG PO Q8H PRN for MIGRAINE Allergies Coded Allergies: Penicillins (Verified Allergy, Severe, swollen tongue, 02/22/19) bee pollen (Verified Allergy, Severe, swollen tongue, 02/22/19) Macrolide Antibiotics (Verified Allergy, Intermediate, GI bleeding, 08/18/20) Quinolones (Verified Allergy, Intermediate, rash, 08/18/20) HAS RECEIVED CIPRO IN PAST WITH OUT PROBLEM Sulfa (Sulfonamide Antibiotics) (Verified Allergy, Intermediate, rash, 08/18/20) cephalexin (Verified Allergy, Intermediate, rash, 08/18/20) hydrocodone (Verified Allergy, Intermediate, hives, 08/18/20) tetracycline (Verified Allergy, Intermediate, hives, 08/18/20) furosemide (Verified Allergy, Unknown, 02/22/19) latex (Verified Allergy, Unknown, 02/22/19) nabumetone (Verified Allergy, Unknown, 02/22/19) nitrofurantoin (Verified Allergy, Unknown, 02/22/19) tramadol (Verified Allergy, Unknown, 02/22/19) A-FIB/CHADSVASC A-FIB History Current/History of A-Fib/PAF?: No GREGORY HARRISON MD Aug 18, 2020 23:27
[2020-08-19] MEDS ORDERED: GLUCAGON INJ 1MG VIAL SC PRN (04:45)
[2020-08-19] MEDS ORDERED: ALBUTEROL SULFATE 2.5 MG/0.5 ML INH NEB SOLN INH PRN (04:45)
[2020-08-19] MEDS ORDERED: IPRATROPIUM 0.5MG/ALBUTEROL 2.5MG INH SOL UD 3ML (DUONEB) NEB PRN (04:45)
[2020-08-19] MEDS ORDERED: GLUCOSE 4GM CHEW TABLET PO PRN (04:45)
[2020-08-19] MEDS ORDERED: DEXTROSE 50% 50 ML SYRINGE IV PRN (04:45)
[2020-08-19 06:00] VITALS: BP 156/92
[2020-08-19] MEDS: CIPROFLOXACIN 400 MG in IV 1 EA IV SCH ×2 (06:21→17:02)
[2020-08-19 06:35] LABS: HEMATOCRIT 36.7 % (36.0-47.0); HEMOGLOBIN 11.6 g/dl (12.0-15.5); MEAN CORPUSCULAR HEMOGLOBIN 27.5 pg (27.0-33.0); MEAN CORPUSCULAR HGB CONC 31.6 g/dl (32.0-36.5); PLATELET COUNT, AUTOMATED 274 10^3/uL (150-450); RED BLOOD COUNT 4.22 10^6/uL (4.00-5.40); WHITE BLOOD COUNT 10.8 10^3/uL (4.0-10.0)
[2020-08-19 06:58] LABS: BLOOD UREA NITROGEN 18 MG/DL (7-18); CARBON DIOXIDE LEVEL 27 MEQ/L (21-32); CHLORIDE LEVEL 107 MEQ/L (98-107); CREATININE FOR GFR 0.94 MG/DL (0.55-1.30); GLOMERULAR FILTRATION RATE > 60.0 (>45); GLUCOSE, FASTING 149 MG/DL (70-100); POTASSIUM SERUM 4.3 MEQ/L (3.5-5.1); SODIUM LEVEL 140 MEQ/L (136-145)
[2020-08-19] MEDS: HumaLOG INSULIN (NovoLOG) PER UNIT SC SCH ×7 (07:30→21:00)
[2020-08-19] MEDS ORDERED: MOM 30ML SUSPENSION UDC PO PRN (08:15)
[2020-08-19] MEDS ORDERED: SENOKOT S TAB PO PRN (08:15)
[2020-08-19] MEDS: oxyBUTYnin *DITROPAN XL* 5 MG TABCR PO SCH (08:29)
[2020-08-19] MEDS: LOSARTAN 50MG TABLET PO SCH (08:29)
[2020-08-19] MEDS: SINEMET 25-100 MG TAB PO SCH ×3 (08:29→17:01)
[2020-08-19] MEDS: SITagliptin 50 MG TAB (JANUVIA) PO SCH (08:29)
[2020-08-19] MEDS: glipiZIDE (GLUCOTROL) 5 MG TAB PO SCH (08:29)
[2020-08-19] MEDS: GABAPENTIN 300 MG CAP PO SCH ×2 (08:29→22:02)
[2020-08-19] MEDS: VENLAFAXINE **XR** 75MG CAPSULE PO SCH ×2 (08:29→22:02)
[2020-08-19] MEDS: LEVEMIR (INSULIN DETEMIR) 1 UNITS/0.01ML SC SCH ×2 (08:31→22:03)
[2020-08-19] MEDS: MIRALAX *UNIT DOSE* 17GM PACKET PO SCH (08:32)
[2020-08-19] MEDS: ENOXAPARIN 40MG/0.4ML SYRINGE (J1650 PER 10MG) SC SCH (08:33)
[2020-08-19] MEDS ORDERED: PNEUMOCOCCAL VACCINE 0.5ML SYRINGE (PNEUMOVAX 23) IM ONE (09:00)
[2020-08-19] MEDS ORDERED: KETOROLAC 30 MG/ML 1ML VIAL IV ONE (09:30)
[2020-08-19] MEDS: OMEPRAZOLE 20 MG CAP PO SCH (11:04)
[2020-08-19] MEDS: PHENAZOPYRIDINE 100 MG TAB PO SCH ×3 (12:08→22:01)
--- NOTE | 2020-08-19 13:24 | IPNPDOC ---
Date Seen The patient was seen on 08/19/20. Progress Note SUBJECTIVE: c/o dysuria , urgency. no chills or abd pain. OBJECTIVE PHYSICAL EXAMINATION: General: aaox 3 no distress Eyes: EOMI in R. eye, L. eye prosthesis. HENT: Atraumatic no jvd Cardiovascular: Normal rate, normal rhythm. Pulmonary: Clear to auscultation b/l, no wheezing GI . sided CVA tenderness, suprapubic tenderness. +bs x 4quadrant soft nondistended Ext: no edema LABORATORY DATA: See below. IMAGING: CT Abdomen/pelvis: 1. There is a diffuse decrease in hepatic parenchymal density, consistent with steatosis. 2. There is diffuse pancreatic atrophy. 3. Mild diverticulosis is present in the distal colon. No diverticulitis. 4. There has been a hysterectomy. 5. There is thickening of the bladder wall with perivesicular inflammatory changes consistent with acute cystitis. 6. There is increased feces throughout the colon consistent with constipation. MICROBIOLOGY: Please see below. ASSESSMENT AND PLAN: Klebsiella UTI IDDM Parkinson's disease Asthma GERD HTN MEIR h/o CVA plan: await urine culture results and sensitivity. states allergy to po abx resumed on home meds pyridium for dysuria for comfort disposition: 2-3days pending urine cx result VS, I&O, 24H, [facility] Vital Signs/I&O Vital Signs Date Time Temp Pulse Resp B/P (MAP) Pulse Ox O2 Delivery O2 Flow Rate FiO2 08/19/20 08:29 156/92 08/19/20 06:00 97.9 113 18 96 Room Air I&O- Last 24 Hours up to 6 AM 08/19/20 06:00 Intake Total 1400 ml Output Total 350 ml Balance 1050 ml Laboratory Data 24H LABS Laboratory Tests 2 08/18/20 15:04: Immature Granulocyte % (Auto) 0.6, Neutrophils (%) (Auto) 54.9, Lymphocytes (%) (Auto) 35.2, Monocytes (%) (Auto) 6.8H, Eosinophils (%) (Auto) 2.0, Basophils (%) (Auto) 0.5, Neutrophils # (Auto) 6.3, Lymphocytes # (Auto) 4.1, Monocytes # (Auto) 0.8, Eosinophils # (Auto) 0.2, Basophils # (Auto) 0.1, Nucleated Red Blood Cells % (auto) 0.0, Urine Color YELLOW, Urine Appearance CLOUDYH, Urine pH 7.0, Urine Specific [place] 1.013, Urine Protein 1+H, Urine Glucose (UA) 3+H, Ur ine Ketones TRACEH, Urine Blood NEGATIVE, Urine Nitrite POSITIVEH, Urine Bilirubin NEGATIVE, Urine Urobilinogen 0.2, Urine Leukocyte Esterase 3+H, Urine WBC (Auto) TNTCH, Urine RBC (Auto) 3, Urine Hyaline Casts (Auto) 0, Urine Bacteria (Auto) 2+H, Urine Squamous Epithelial Cells 0, Urine Sperm (Auto) , Anion Gap 9, Glomerular Filtration Rate 54.0, Calcium Level 9.0, Total Bilirubin 0.2, Direct Bilirubin < 0.1, Aspartate Amino Transf (AST/SGOT) 53H, Alanine Aminotransferase (ALT/SGPT) 17, Alkaline Phosphatase 138H, Total Protein 7.5, Albumin 3.3, Albumin/Globulin Ratio 0.8L, Lipase 105 08/18/20 19:03: POC Lactate (Misc Panel) 1.34 08/18/20 21:17: Coronavirus (COVID-19)(PCR) NEGATIVE 08/18/20 23:06: Bedside Glucose (Misc Panel) 128H 08/19/20 06:20: Nucleated Red Blood Cells % (auto) 0.0, Anion Gap 6L, Glomerular Filtration Rate > 60.0, Calcium Level 9.0 08/19/20 11:20: Bedside Glucose (Misc Panel) 226H CBC/BMP Laboratory Tests 08/18/20 15:04 08/19/20 06:20 Microbiology Microbiology 08/18/20 Urine Culture, Received Pending IRIS COATES MD Aug 19, 2020 12:43
[2020-08-19 14:00] VITALS: BP 140/84
[2020-08-19] MEDS ORDERED: diphenhydrAMINE 50MG/ML VIAL (J1200) IV ONE (20:30)
[2020-08-19 22:00] VITALS: BP 142/85
[2020-08-19] MEDS: KETOROLAC TROMETHAMINE 10 MG TAB PO PRN (22:01)
[2020-08-19] MEDS: ATORVASTATIN 20 MG TAB PO SCH (22:01)
[2020-08-19] MEDS: TOPIRAMATE (TopAMAX) 100 MG TAB PO SCH (22:02)
[2020-08-19] MEDS: NORTRIPTYLINE 25 MG CAP PO SCH (22:02)
[2020-08-19] MEDS: MONTELUKAST 10 MG TAB PO SCH (22:02)
[2020-08-19] MEDS: ASPIRIN 81 MG ENTERIC TAB PO SCH (22:03)
[2020-08-19] MEDS: METOPROLOL SUCC *XL* 25MG TAB (TopROL *XL*) PO SCH (22:05)
[2020-08-20] MEDS: CIPROFLOXACIN 400 MG in IV 1 EA IV SCH ×2 (05:40→17:15)
[2020-08-20 06:00] VITALS: BP 140/71
[2020-08-20] MEDS: LEVEMIR (INSULIN DETEMIR) 1 UNITS/0.01ML SC SCH ×2 (08:14→20:39)
[2020-08-20] MEDS: HumaLOG INSULIN (NovoLOG) PER UNIT SC SCH ×7 (08:15→20:39)
[2020-08-20] MEDS: MIRALAX *UNIT DOSE* 17GM PACKET PO SCH (08:15)
[2020-08-20] MEDS: PHENAZOPYRIDINE 100 MG TAB PO SCH ×3 (08:15→20:38)
[2020-08-20] MEDS: ENOXAPARIN 40MG/0.4ML SYRINGE (J1650 PER 10MG) SC SCH (08:15)
[2020-08-20] MEDS: SITagliptin 50 MG TAB (JANUVIA) PO SCH (08:16)
[2020-08-20] MEDS: glipiZIDE (GLUCOTROL) 5 MG TAB PO SCH (08:16)
[2020-08-20] MEDS: GABAPENTIN 300 MG CAP PO SCH ×2 (08:16→20:37)
[2020-08-20] MEDS: SINEMET 25-100 MG TAB PO SCH ×3 (08:16→17:15)
[2020-08-20] MEDS: OMEPRAZOLE 20 MG CAP PO SCH (08:16)
[2020-08-20] MEDS: VENLAFAXINE **XR** 75MG CAPSULE PO SCH ×2 (08:16→20:37)
[2020-08-20] MEDS: oxyBUTYnin *DITROPAN XL* 5 MG TABCR PO SCH (08:16)
[2020-08-20] MEDS: LOSARTAN 50MG TABLET PO SCH (08:17)
--- NOTE | 2020-08-20 11:42 | IPNPDOC ---
Date Seen The patient was seen on 08/20/20. Progress Note SUBJECTIVE: Improved dysuria on Pyridium No fever, chills, urgency, frequency Urine culture: Pseudomonas OBJECTIVE PHYSICAL EXAMINATION: General: aaox 3 no distress . HEENT: No JVD, no thyromegaly, no cervical lymphadenopathy. Mucous membranes are moist . Heart: Normal rate, normal rhythm. . Lungs: Clear to auscultation b/l, no wheezing . Abdomen:., No CVA tenderness, +bs x 4quadrant soft nondistended Ext: no edema LABORATORY DATA: See below. IMAGING: CT Abdomen/pelvis: 1. There is a diffuse decrease in hepatic parenchymal density, consistent with steatosis. 2. There is diffuse pancreatic atrophy. 3. Mild diverticulosis is present in the distal colon. No diverticulitis. 4. There has been a hysterectomy. 5. There is thickening of the bladder wall with perivesicular inflammatory changes consistent with acute cystitis. 6. There is increased feces throughout the colon consistent with constipation. MICROBIOLOGY: Please see below. ASSESSMENT AND PLAN: Pseudomonas UTI IDDM Parkinson's disease Asthma GERD HTN MEIR h/o CVA plan: IV Cipro for 5 days states allergy to po abx resumed on home meds pyridium for dysuria for comfort disposition: 2-3days pending urine cx result VS, [facility] V[facility] Signs/I&O Vital Signs Date Time Temp Pulse Resp B/P (MAP) Pulse Ox O2 Delivery O2 Flow Rate FiO2 08/20/20 08:17 137/69 08/20/20 06:00 98.6 85 17 93 Room Air I&O- Last 24 Hours up to 6 AM 08/20/20 06:00 Intake Total 1960 ml Output Total 2050 ml Balance -90 ml Laboratory Data 24H LABS Laboratory Tests 2 08/19/20 16:29: Bedside Glucose (Misc Panel) 133H 08/19/20 21:05: Bedside Glucose (Misc Panel) 216H 08/20/20 06:47: Bedside Glucose (Misc Panel) 192H Microbiology Microbiology 08/18/20 Urine Culture - Final, Complete Pseudomonas Fluorescens IRIS COATES MD Aug 20, 2020 11:42
[2020-08-20 13:07] LABS: BASO # 0.1 10^3/uL (0.0-0.2); BASO % 0.4 % (0.0-1.0); EOS # 0.3 10^3/uL (0.0-0.5); EOS % 1.7 % (0.0-3.0); HEMATOCRIT 37.6 % (36.0-47.0); HEMOGLOBIN 11.9 g/dl (12.0-15.5); LYMPH # 4.6 10^3/uL (1.5-5.0); LYMPH % 28.3 % (24.0-44.0); MEAN CORPUSCULAR HEMOGLOBIN 27.6 pg (27.0-33.0); MEAN CORPUSCULAR HGB CONC 31.6 g/dl (32.0-36.5); MEAN CORPUSCULAR VOLUME 87.2 fl (80.0-96.0); MONO # 0.9 10^3/uL (0.0-0.8); MONO % 5.5 % (0.0-5.0); NEUTROPHILS # 10.2 10^3/uL (1.5-8.5); NEUTROPHILS % 63.5 % (36.0-66.0); PLATELET COUNT, AUTOMATED 287 10^3/uL (150-450); RED BLOOD COUNT 4.31 10^6/uL (4.00-5.40); WHITE BLOOD COUNT 16.1 10^3/uL (4.0-10.0)
[2020-08-20 13:30] LABS: C REACTIVE PROTEIN QUANTITATIV 6.34 MG/DL (0.00-0.30); CALCIUM LEVEL 9.4 MG/DL (8.8-10.2); CREATININE FOR GFR 1.08 MG/DL (0.55-1.30); POTASSIUM SERUM 4.4 MEQ/L (3.5-5.1)
[2020-08-20 13:31] LABS: ERYTHROCYTE SEDIMENTATION RATE 69 mm/hr (0-30)
[2020-08-20 14:00] VITALS: BP 129/75
[2020-08-20] MEDS: NORTRIPTYLINE 25 MG CAP PO SCH (20:36)
[2020-08-20] MEDS: TOPIRAMATE (TopAMAX) 100 MG TAB PO SCH (20:37)
[2020-08-20] MEDS: METOPROLOL SUCC *XL* 25MG TAB (TopROL *XL*) PO SCH (20:37)
[2020-08-20] MEDS: ATORVASTATIN 20 MG TAB PO SCH (20:38)
[2020-08-20] MEDS: ASPIRIN 81 MG ENTERIC TAB PO SCH (20:38)
[2020-08-20] MEDS: MONTELUKAST 10 MG TAB PO SCH (20:38)
[2020-08-20 22:00] VITALS: BP 129/75
[2020-08-21 06:00] VITALS: BP 122/68
[2020-08-21] MEDS: CIPROFLOXACIN 400 MG in IV 1 EA IV SCH (06:27)
[2020-08-21] MEDS: HumaLOG INSULIN (NovoLOG) PER UNIT SC SCH ×7 (08:10→20:26)
[2020-08-21] MEDS: LEVEMIR (INSULIN DETEMIR) 1 UNITS/0.01ML SC SCH (08:10)
[2020-08-21] MEDS: ENOXAPARIN 40MG/0.4ML SYRINGE (J1650 PER 10MG) SC SCH (08:11)
[2020-08-21] MEDS: GABAPENTIN 300 MG CAP PO SCH ×2 (08:11→19:54)
[2020-08-21] MEDS: MEROPENEM INJ 1 GM in IV 1 EA IV SCH ×2 (08:11→17:33)
[2020-08-21] MEDS: OMEPRAZOLE 20 MG CAP PO SCH (08:11)
[2020-08-21] MEDS: PHENAZOPYRIDINE 100 MG TAB PO SCH ×3 (08:11→19:53)
[2020-08-21] MEDS: glipiZIDE (GLUCOTROL) 5 MG TAB PO SCH (08:11)
[2020-08-21] MEDS: SITagliptin 50 MG TAB (JANUVIA) PO SCH (08:11)
[2020-08-21] MEDS: oxyBUTYnin *DITROPAN XL* 5 MG TABCR PO SCH (08:11)
[2020-08-21] MEDS: SINEMET 25-100 MG TAB PO SCH ×3 (08:12→17:33)
[2020-08-21] MEDS: VENLAFAXINE **XR** 75MG CAPSULE PO SCH ×2 (08:12→19:54)
[2020-08-21] MEDS: MIRALAX *UNIT DOSE* 17GM PACKET PO SCH (08:13)
[2020-08-21] MEDS: LOSARTAN 50MG TABLET PO SCH (08:13)
[2020-08-21 08:52] LABS: BASO # 0.1 10^3/uL (0.0-0.2); BASO % 0.6 % (0.0-1.0); EOS # 0.3 10^3/uL (0.0-0.5); EOS % 2.1 % (0.0-3.0); HEMATOCRIT 35.9 % (36.0-47.0); HEMOGLOBIN 11.4 g/dl (12.0-15.5); LYMPH # 4.1 10^3/uL (1.5-5.0); LYMPH % 31.4 % (24.0-44.0); MEAN CORPUSCULAR HEMOGLOBIN 28.3 pg (27.0-33.0); MEAN CORPUSCULAR HGB CONC 31.8 g/dl (32.0-36.5); MEAN CORPUSCULAR VOLUME 89.1 fl (80.0-96.0); MONO # 0.9 10^3/uL (0.0-0.8); MONO % 6.6 % (0.0-5.0); NEUTROPHILS # 7.6 10^3/uL (1.5-8.5); NEUTROPHILS % 58.6 % (36.0-66.0); PLATELET COUNT, AUTOMATED 276 10^3/uL (150-450); RED BLOOD COUNT 4.03 10^6/uL (4.00-5.40)
[2020-08-21 09:13] LABS: BLOOD UREA NITROGEN 18 MG/DL (7-18); C REACTIVE PROTEIN QUANTITATIV 6.96 MG/DL (0.00-0.30); CALCIUM LEVEL 8.5 MG/DL (8.8-10.2); CARBON DIOXIDE LEVEL 25 MEQ/L (21-32); CHLORIDE LEVEL 104 MEQ/L (98-107); CREATININE FOR GFR 0.96 MG/DL (0.55-1.30); GLOMERULAR FILTRATION RATE > 60.0 (>45); GLUCOSE, FASTING 275 MG/DL (70-100); POTASSIUM SERUM 4.9 MEQ/L (3.5-5.1); SODIUM LEVEL 137 MEQ/L (136-145)
[2020-08-21 09:14] LABS: ERYTHROCYTE SEDIMENTATION RATE 65 mm/hr (0-30)
--- NOTE | 2020-08-21 12:18 | IPNPDOC ---
Date Seen The patient was seen on 08/21/20. Progress Note SUBJECTIVE: wbc increased to 16 yesterday. pending wbc today. pt changed to meropenem for pseudomonas in urine cx. afebrile no chills denies flank pain. improved dysuria on pyridium OBJECTIVE PHYSICAL EXAMINATION: General: pleasant answering questions appropriately . HEENT: No JVD, no thyromegaly, no cervical lymphadenopathy. Mucous membranes are moist left upper eyelid ptosis . Heart: Normal rate, normal rhythm. . Lungs: Clear to auscultation b/l, no wheezing . Abdomen:., No CVA tenderness, +bs x 4quadrant soft nondistended Ext: no edema LABORATORY DATA: See below. IMAGING: CT Abdomen/pelvis: 1. There is a diffuse decrease in hepatic parenchymal density, consistent with steatosis. 2. There is diffuse pancreatic atrophy. 3. Mild diverticulosis is present in the distal colon. No diverticulitis. 4. There has been a hysterectomy. 5. There is thickening of the bladder wall with perivesicular inflammatory changes consistent with acute cystitis. 6. There is increased feces throughout the colon consistent with constipation. MICROBIOLOGY: Please see below. ASSESSMENT AND PLAN: Pseudomonas UTI IDDM,uncontrolled Parkinson's disease Asthma GERD HTN MEIR h/o CVA chronic left upper eyelid ptosis plan: changed iv cipro to iv merem due to incr wbc 26. urine cx: pseudomonas. dc home after 5 days of abx. increase insulin for better glycemic control. VS, I&O, 24H, [facility]bone Vital Signs/I&O Vital Signs Date Time Temp Pulse Resp B/P (MAP) Pulse Ox O2 Delivery O2 Flow Rate FiO2 08/20/20 22:00 97.4 102 18 129/75 (93) 92 Room Air I&O- Last 24 Hours up to 6 AM 08/21/20 06:00 Intake Total 1390 ml Output Total 3450 ml Balance -2060 ml Laboratory Data 24H LABS Laboratory Tests 2 08/20/20 11:37: Bedside Glucose (Misc Panel) 243H 08/20/20 12:52: Immature Granulocyte % (Auto) 0.6, Neutrophils (%) (Auto) 63.5, Lymphocytes (%) (Auto) 28.3, Monocytes (%) (Auto) 5.5H, Eosinophils (%) (Auto) 1.7, Basophils (%) (Auto) 0.4, Neutrophils # (Auto) 10.2H, Lymphocytes # (Auto) 4.6, Monocytes # (Auto) 0.9H, Eosinophils # (Auto) 0.3, Basophils # (Auto) 0.1, Nucleated Red Blood Cells % (auto) 0.0, Erythrocyte Sedimentation Rate 69H, Anion Gap 6L, Glomerular Filtration Rate 54.0, Calcium Level 9.4, C-Reactive Protein, Quantitative 6.34H, Procalcitonin 0.21 08/20/20 16:39: Bedside Glucose (Misc Panel) 163H 08/20/20 20:08: Bedside Glucose (Misc Panel) 251H 08/21/20 05:31: Bedside Glucose (Misc Panel) 236H CBC/BMP Laboratory Tests 08/20/20 12:52 Microbiology Microbiology 08/18/20 Urine Culture - Final, Complete Pseudomonas Fluorescens IRIS COATES MD Aug 21, 2020 07:31
[2020-08-21] MEDS: KETOROLAC TROMETHAMINE 10 MG TAB PO PRN (12:19)
[2020-08-21 14:00] VITALS: BP 118/65
[2020-08-21] MEDS: ATORVASTATIN 20 MG TAB PO SCH (19:53)
[2020-08-21] MEDS: ASPIRIN 81 MG ENTERIC TAB PO SCH (19:53)
[2020-08-21] MEDS: MONTELUKAST 10 MG TAB PO SCH (19:53)
[2020-08-21] MEDS: NORTRIPTYLINE 25 MG CAP PO SCH (19:54)
[2020-08-21] MEDS: TOPIRAMATE (TopAMAX) 100 MG TAB PO SCH (19:55)
[2020-08-21] MEDS: METOPROLOL SUCC *XL* 25MG TAB (TopROL *XL*) PO SCH (19:57)
[2020-08-21] MEDS ORDERED: LEVEMIR (INSULIN DETEMIR) 1 UNITS/0.01ML SC ONE (20:30)
[2020-08-21] MEDS ORDERED: LEVEMIR (INSULIN DETEMIR) 1 UNITS/0.01ML SC SCH (21:00)
[2020-08-21 22:00] VITALS: BP 148/76
[2020-08-22] MEDS: MEROPENEM INJ 1 GM in IV 1 EA IV SCH ×3 (01:29→16:27)
[2020-08-22 06:00] VITALS: BP 137/69
[2020-08-22 06:45] LABS: BASO # 0.1 10^3/uL (0.0-0.2); BASO % 0.7 % (0.0-1.0); EOS # 0.4 10^3/uL (0.0-0.5); EOS % 2.9 % (0.0-3.0); HEMATOCRIT 39.1 % (36.0-47.0); HEMOGLOBIN 12.2 g/dl (12.0-15.5); LYMPH # 3.8 10^3/uL (1.5-5.0); LYMPH % 29.6 % (24.0-44.0); MEAN CORPUSCULAR HEMOGLOBIN 27.4 pg (27.0-33.0); MEAN CORPUSCULAR HGB CONC 31.2 g/dl (32.0-36.5); MEAN CORPUSCULAR VOLUME 87.9 fl (80.0-96.0); MONO # 0.8 10^3/uL (0.0-0.8); MONO % 6.1 % (0.0-5.0); NEUTROPHILS # 7.6 10^3/uL (1.5-8.5); PLATELET COUNT, AUTOMATED 293 10^3/uL (150-450); RED BLOOD COUNT 4.45 10^6/uL (4.00-5.40); WHITE BLOOD COUNT 12.7 10^3/uL (4.0-10.0)
[2020-08-22 07:13] LABS: C REACTIVE PROTEIN QUANTITATIV 5.01 MG/DL (0.00-0.30); CALCIUM LEVEL 9.3 MG/DL (8.8-10.2); CREATININE FOR GFR 1.03 MG/DL (0.55-1.30); GLOMERULAR FILTRATION RATE 57.1 (>45); POTASSIUM SERUM 5.1 MEQ/L (3.5-5.1)
[2020-08-22 07:47] LABS: ERYTHROCYTE SEDIMENTATION RATE 63 mm/hr (0-30)
[2020-08-22] MEDS: HumaLOG INSULIN (NovoLOG) PER UNIT SC SCH ×7 (08:44→20:42)
[2020-08-22] MEDS: ENOXAPARIN 40MG/0.4ML SYRINGE (J1650 PER 10MG) SC SCH (08:45)
[2020-08-22] MEDS: MIRALAX *UNIT DOSE* 17GM PACKET PO SCH (08:45)
[2020-08-22] MEDS: PHENAZOPYRIDINE 100 MG TAB PO SCH ×3 (08:46→20:39)
[2020-08-22] MEDS: GABAPENTIN 300 MG CAP PO SCH ×2 (08:46→20:39)
[2020-08-22] MEDS: LOSARTAN 50MG TABLET PO SCH (08:46)
[2020-08-22] MEDS: SINEMET 25-100 MG TAB PO SCH ×3 (08:47→18:02)
[2020-08-22] MEDS: VENLAFAXINE **XR** 75MG CAPSULE PO SCH ×2 (08:47→20:39)
[2020-08-22] MEDS: SITagliptin 50 MG TAB (JANUVIA) PO SCH (08:47)
[2020-08-22] MEDS: OMEPRAZOLE 20 MG CAP PO SCH (08:47)
[2020-08-22] MEDS: glipiZIDE (GLUCOTROL) 5 MG TAB PO SCH (08:50)
[2020-08-22] MEDS: oxyBUTYnin *DITROPAN XL* 5 MG TABCR PO SCH (08:50)
[2020-08-22] MEDS: KETOROLAC TROMETHAMINE 10 MG TAB PO PRN (11:46)
--- NOTE | 2020-08-22 12:59 | IPNPDOC ---
Date Seen The patient was seen on 08/22/20. Progress Note SUBJECTIVE: no new complaints. no dysuria, fever, chills, urinary frequency,urgency,flank pain. denies diarrhea no other issues per RN OBJECTIVE PHYSICAL EXAMINATION: General: aaox3 no distress left eye ptosis . HEENT: No JVD, no thyromegaly, no cervical lymphadenopathy. Mucous membranes are moist . Heart: Normal rate, normal rhythm. . Lungs: Clear to auscultation b/l, no wheezing . Abdomen:., No CVA tenderness, +bs x 4quadrant soft nondistended Ext: no edema LABORATORY DATA: See below. IMAGING: CT Abdomen/pelvis: 1. There is a diffuse decrease in hepatic parenchymal density, consistent with steatosis. 2. There is diffuse pancreatic atrophy. 3. Mild diverticulosis is present in the distal colon. No diverticulitis. 4. There has been a hysterectomy. 5. There is thickening of the bladder wall with perivesicular inflammatory changes consistent with acute cystitis. 6. There is increased feces throughout the colon consistent with constipation. MICROBIOLOGY: Please see below. ASSESSMENT AND PLAN: Pseudomonas UTI IDDM,uncontrolled Parkinson's disease Asthma GERD HTN EMIR h/o CVA chronic left upper eyelid ptosis plan: completing 5 days iv abx. last dose in am. downward trend on wbc, crp, esr and clinically improving w/o fever, or pain. ok to dc in am if no other issues overnight. VS, I&O, 24H, [facility] Vital Signs/I&O Vital Signs Date Time Temp Pulse Resp B/P (MAP) Pulse Ox O2 Delivery O2 Flow Rate FiO2 08/22/20 08:46 137/69 08/22/20 06:00 96.9 86 18 96 Room Air I&O- Last 24 Hours up to 6 AM 08/22/20 06:00 Intake Total 2360 ml Output Total 4125 ml Balance -1765 ml Laboratory Data 24H LABS Laboratory Tests 2 08/21/20 16:32: Bedside Glucose (Misc Panel) 140H 08/21/20 20:01: Bedside Glucose (Misc Panel) 195H 08/22/20 06:22: Immature Granulocyte % (Auto) 0.7, Neutrophils (%) (Auto) 60.0, Lymphocytes (%) (Auto) 29.6, Monocytes (%) (Auto) 6.1H, Eosinophils (%) (Auto) 2.9, Basophils (%) (Auto) 0.7, Neutrophils # (Auto) 7.6, Lymphocytes # (Auto) 3.8, Monocytes # (Auto) 0.8, Eosinophils # (Auto) 0.4, Basophils # (Auto) 0.1, Nucleated Red Blood Cells % (auto) 0.0, Erythrocyte Sedimentation Rate 63H, Anion Gap 8, Glomerular Filtration Rate 57.1, Calcium Level 9.3, C-Reactive Protein, Quantitative 5.01H 08/22/20 11:17: Bedside Glucose (Misc Panel) 273H CBC/BMP Laboratory Tests 08/22/20 06:22 Microbiology Microbiology 08/21/20 Blood Culture - Preliminary, Resulted No growth after 24 hours . All specim... 08/21/20 Blood Culture - Preliminary, Resulted No growth after 24 hours . All specim... 08/18/20 Urine Culture - Final, Complete Pseudomonas Fluorescens IRIS COATES MD Aug 22, 2020 12:59
[2020-08-22 14:00] VITALS: BP 132/68
[2020-08-22] MEDS: ATORVASTATIN 20 MG TAB PO SCH (20:38)
[2020-08-22] MEDS: METOPROLOL SUCC *XL* 25MG TAB (TopROL *XL*) PO SCH (20:39)
[2020-08-22] MEDS: TOPIRAMATE (TopAMAX) 100 MG TAB PO SCH (20:39)
[2020-08-22] MEDS: NORTRIPTYLINE 25 MG CAP PO SCH (20:40)
[2020-08-22] MEDS: MONTELUKAST 10 MG TAB PO SCH (20:40)
[2020-08-22] MEDS: ASPIRIN 81 MG ENTERIC TAB PO SCH (20:40)
[2020-08-22] MEDS ORDERED: LEVEMIR (INSULIN DETEMIR) 1 UNITS/0.01ML SC SCH (21:00)
[2020-08-22 22:00] VITALS: BP 143/84
[2020-08-23] MEDS: MEROPENEM INJ 1 GM in IV 1 EA IV SCH (01:56)
[2020-08-23 06:00] VITALS: BP 150/82
[2020-08-23 06:41] LABS: BASO # 0.1 10^3/uL (0.0-0.2); BASO % 0.8 % (0.0-1.0); EOS # 0.4 10^3/uL (0.0-0.5); EOS % 3.9 % (0.0-3.0); HEMATOCRIT 37.9 % (36.0-47.0); HEMOGLOBIN 11.7 g/dl (12.0-15.5); LYMPH # 4.1 10^3/uL (1.5-5.0); LYMPH % 36.7 % (24.0-44.0); MEAN CORPUSCULAR HEMOGLOBIN 27.1 pg (27.0-33.0); MEAN CORPUSCULAR HGB CONC 30.9 g/dl (32.0-36.5); MEAN CORPUSCULAR VOLUME 87.9 fl (80.0-96.0); MONO # 0.8 10^3/uL (0.0-0.8); NEUTROPHILS # 5.7 10^3/uL (1.5-8.5); NEUTROPHILS % 50.7 % (36.0-66.0); PLATELET COUNT, AUTOMATED 294 10^3/uL (150-450); RED BLOOD COUNT 4.31 10^6/uL (4.00-5.40); WHITE BLOOD COUNT 11.2 10^3/uL (4.0-10.0)
[2020-08-23 07:05] LABS: ERYTHROCYTE SEDIMENTATION RATE 63 mm/hr (0-30)
[2020-08-23 07:10] LABS: C REACTIVE PROTEIN QUANTITATIV 2.48 MG/DL (0.00-0.30); CALCIUM LEVEL 8.8 MG/DL (8.8-10.2); CREATININE FOR GFR 1.07 MG/DL (0.55-1.30); GLOMERULAR FILTRATION RATE 54.6 (>45); POTASSIUM SERUM 4.7 MEQ/L (3.5-5.1)
[2020-08-23] MEDS ORDERED: MEROPENEM INJ 2 GM in NS 100 ML IV ONE (07:15)
[2020-08-23] MEDS ORDERED: MEROPENEM INJ 1 GM in IV 1 EA IV ONE ×2 (07:30→17:00)
[2020-08-23] MEDS: MIRALAX *UNIT DOSE* 17GM PACKET PO SCH (09:00)
[2020-08-23] MEDS: HumaLOG INSULIN (NovoLOG) PER UNIT SC SCH ×6 (09:21→17:02)
[2020-08-23 09:22] VITALS: BP 145/80
[2020-08-23] MEDS: VENLAFAXINE **XR** 75MG CAPSULE PO SCH (09:22)
[2020-08-23] MEDS: glipiZIDE (GLUCOTROL) 5 MG TAB PO SCH (09:22)
[2020-08-23] MEDS: LOSARTAN 50MG TABLET PO SCH (09:22)
[2020-08-23] MEDS: GABAPENTIN 300 MG CAP PO SCH (09:22)
[2020-08-23] MEDS: PHENAZOPYRIDINE 100 MG TAB PO SCH ×2 (09:23→17:02)
[2020-08-23] MEDS: ENOXAPARIN 40MG/0.4ML SYRINGE (J1650 PER 10MG) SC SCH (09:23)
[2020-08-23] MEDS: OMEPRAZOLE 20 MG CAP PO SCH (09:23)
[2020-08-23] MEDS: SITagliptin 50 MG TAB (JANUVIA) PO SCH (09:23)
[2020-08-23] MEDS: SINEMET 25-100 MG TAB PO SCH ×3 (09:23→17:02)
[2020-08-23] MEDS: oxyBUTYnin *DITROPAN XL* 5 MG TABCR PO SCH (09:23)
[2020-08-23] MEDS: KETOROLAC TROMETHAMINE 10 MG TAB PO PRN (09:35)
--- NOTE | 2020-08-23 10:27 | DS.PDOC ---
Discharge Summary General Date of Admission Aug 18, 2020 at 21:21 Date of Discharge 08/23/20 Discharge Summary DISCHARGE DIAGNOSES: Pseudomonas UTI IDDM,uncontrolled Parkinson's disease Asthma GERD HTN MEIR h/o CVA chronic left upper eyelid ptosis DISCHARGE MEDICATIONS: SEE BELOW ALLERGIES: SEE BELOW DISCHARGE INSTRUCTIONS: PCP FU 5DAYS HOSPITAL COURSE: Patient is 64 year old female with PMH Parkinson's disease, IDDM, Asthma, GERD, HTN, HLD, MEIR and CVA sent into the ER by her PCP for IV abx for UTI. Patient has been having dysuria for 3-4 weeks already with subsequent development of fever to 102F last night and R. sided CVA tenderness. She states that she is allergic to all available PO antibiotics and told by her PCP to come to the hospital for IV Abx treatment. Urine culture from outside shows Klebsiella >100,000 and appear to be pansensitive. Patient is very anxious about her allergy profile and prefer to stay while she is being treated. Denies any other physical complaints. Patient was treated with IV Cipro, but urine culture: pseudomonas. Cipro was discontinued, and pt was started on meropenem iv q8hrs with improved wbc and no fevers. She had dysuria treated with pyridium w res olution despite orange discoloration of her urine and body fluids. pt completed 5days iv antibiotics,and passed HSE. DISCHARGE PHYSICAL EXAMINATION: General: aaox3 no distress left eye ptosis . HEENT: No JVD, no thyromegaly, no cervical lymphadenopathy. Mucous membranes are moist . Heart: Normal rate, normal rhythm. . Lungs: Clear to auscultation b/l, no wheezing . Abdomen:., No CVA tenderness, +bs x 4quadrant soft nondistended Ext: no edema DISCHARGE LABORATORY DATA: See below. IMAGING: CT Abdomen/pelvis: 1. There is a diffuse decrease in hepatic parenchymal density, consistent with steatosis. 2. There is diffuse pancreatic atrophy. 3. Mild diverticulosis is present in the distal colon. No diverticulitis. 4. There has been a hysterectomy. 5. There is thickening of the bladder wall with perivesicular inflammatory changes consistent with acute cystitis. 6. There is increased feces throughout the colon consistent with constipation. MICROBIOLOGY: Please see below. TIME SPENT ON DISCHARGE: 30 MINUTES Vital Signs/I&Os Vital Signs Date Time Temp Pulse Resp B/P (MAP) Pulse Ox O2 Delivery O2 Flow Rate FiO2 08/23/20 09:22 145/80 08/23/20 06:00 96.9 89 20 94 Room Air I&O- Last 24 Hours up to 6 AM 08/23/20 06:00 Intake Total 1420 ml Output Total 1725 ml Balance -305 ml Laboratory Data Labs 24H Laboratory Tests 2 08/22/20 11:17: Bedside Glucose (Misc Panel) 273H 08/22/20 16:26: Bedside Glucose (Misc Panel) 150H 08/22/20 20:22: Bedside Glucose (Misc Panel) 234H 08/23/20 05:41: Immature Granulocyte % (Auto) 0.9, Neutrophils (%) (Auto) 50.7, Lymphocytes (%) (Auto) 36.7, Monocytes (%) (Auto) 7.0H, Eosinophils (%) (Auto) 3.9H, Basophils ( %) (Auto) 0.8, Neutrophils # (Auto) 5.7, Lymphocytes # (Auto) 4.1, Monocytes # (Auto) 0.8, Eosinophils # (Auto) 0.4, Basophils # (Auto) 0.1, Nucleated Red Blood Cells % (auto) 0.0, Erythrocyte Sedimentation Rate 63H, Anion Gap 8, Glomerular Filtration Rate 54.6, Calcium Level 8.8, C-Reactive Protein, Quantitative 2.48H CBC/BMP Laboratory Tests 08/23/20 05:41 FSBS Laboratory Tests Test 08/22/20 11:17 08/22/20 16:26 08/22/20 20:22 Range/Units Bedside Glucose (Misc Panel) 273 150 234 80-115 MG/DL Microbiology Microbiology 08/21/20 Blood Culture - Preliminary, Resulted No growth after 24 hours . All specim... 08/21/20 Blood Culture - Preliminary, Resulted No Growth after 48 hours. All Specime... 08/18/20 Urine Culture - Final, Complete Pseudomonas Fluorescens Discharge Medications Scheduled Aspirin (Aspirin EC) 81 Mg Tablet.dr, 81 MG PO QHS, (Reported) Atorvastatin Calcium (Atorvastatin Calcium) 80 Mg Tab, 80 MG PO QHS, (Reported) Carbidopa/Levodopa (Sinemet 25-100 mg Tablet) 1 Each Tablet, 2 TAB PO TID, (Reported) 0800, 1300, 1800 Gabapentin (Gabapentin) 300 Mg Cap, 600 MG PO BID, (Reported) Glipizide (Glipizide) 5 Mg Tab, 5 MG PO DAILY, (Reported) Icosapent Ethyl (Vascepa) 1 Gm Capsule, 2 GM PO BID, (Reported) Insulin Aspart (Novolog) 100 Unit/1 Ml Cartridge, 10 UNITS SC AC, (Reported) PLUS SLIDING SCALE Insulin Glargine,Hum.rec.anlog (Basaglar Kwikpen U-100) 100 Unit/Ml Inj, 65 UNIT SC DAILY, (Reported) Insulin Glargine,Hum.rec.anlog (Basaglar Kwikpen U-100) 100 Unit/Ml Inj, 75 UNIT SC QHS, (Reported) Losartan Potassium (Losartan Potassium) 50 Mg Tab, 50 MG PO DAILY, (Reported) Magnesium Oxide (Magnesium) 400 Mg Cap, 800 MG PO QHS, (Reported) Metoprolol Succinate (Toprol Xl) 25 Mg Tab.er.24h, 25 MG PO QHS, (Reported) Montelukast Sodium (Montelukast Sodium) 10 Mg Tab, 10 MG PO QHS, (Reported) Nortriptyline HCl (Nortriptyline HCl) 25 Mg Capsule, 25 MG PO QHS, (Reported) Omeprazole (Omeprazole) 40 Mg Capsule.dr, 40 MG PO DAILY, (Reported) Oxybutynin Chloride (Oxybutynin Chloride ER) 5 Mg Tab, 5 MG PO DAILY, (Reported) Sitagliptin Phosphate (Januvia) 100 Mg Tab, 100 MG PO DAILY, (Reported) Topiramate (Topiramate) 100 Mg Tablet, 100 MG PO QHS, (Reported) Venlafaxine HCl (Venlafaxine HCl ER) 75 Mg Cap.er.24h, 75 MG PO BID, (Reported) Scheduled PRN Albuterol Sulf (Albuterol Sulfate) 2.5 Mg/3 Ml Vial.neb, 2.5 MG INH Q4H PRN for SHORTNESS OF BREATH, (Reported) Epinephrine (Epipen 2-[place]) 0.3 Mg/0.3 Ml Inj, 0.3 MG IM ASDIRECTED PRN for ANAPHALAXIS, (Reported) Fluticasone Propionate (Flonase Allergy Relief) 9.9 Ml [place].susp, 1 SPRAY NA BID PRN for NASAL CONGESTION, (Reported) Ketorolac Tromethamine (Ketorolac Tromethamine) 10 Mg Tablet, 10 MG PO Q8H PRN for MIGRAINE, (Reported) Allergies Coded Allergies: Penicillins (Verified Allergy, Severe, swollen tongue, 02/22/19) bee pollen (Verified Allergy, Severe, swollen tongue, 02/22/19) Macrolide Antibiotics (Verified Allergy, Intermediate, GI bleeding, 08/18/20) Quinolones (Verified Allergy, Intermediate, rash, 08/18/20) HAS RECEIVED CIPRO IN PAST WITH OUT PROBLEM Sulfa (Sulfonamide Antibiotics) (Verified Allergy, Intermediate, rash, 08/18/20) cephalexin (Verified Allergy, Intermediate, rash, 08/18/20) hydrocodone (Verified Allergy, Intermediate, hives, 08/18/20) tetracycline (Verified Allergy, Intermediate, hives, 08/18/20) furosemide (Verified Allergy, Unknown, 02/22/19) latex (Verified Allergy, Unknown, 02/22/19) nabumetone (Verified Allergy, Unknown, 02/22/19) nitrofurantoin (Verified Allergy, Unknown, 02/22/19) tramadol (Verified Allergy, Unknown, 02/22/19) IRIS COATES MD Aug 23, 2020 10:27
[2020-08-23 14:00] VITALS: BP 124/78
== END 2020-08-23 18:49 | disposition home or self-care (01) | DRG 690 ==
LOC: M ED 14:32 → M ED INP 21:21 → ENRESERV 22:18 → M MSPAV 22:49
PROVIDERS: ADMIT Student in an Organized Health Care Education/Training Program; ATTEND General Practice
DX: N39.0 Urinary tract infection, site not specified (principal); G20 Parkinson's disease; E11.9 Type 2 diabetes mellitus without complications; K21.9 Gastro-esophageal reflux disease without esophagitis; J45.909 Unspecified asthma, uncomplicated; G47.33 Obstructive sleep apnea (adult) (pediatric); Z86.73 Personal history of transient ischemic attack (TIA), and cerebral infarction without residual deficits; B96.5 Pseudomonas (aeruginosa) (mallei) (pseudomallei) as the cause of diseases classified elsewhere; H02.402 Unspecified ptosis of left eyelid; Z79.899 Other long term (current) drug therapy; Z79.82 Long term (current) use of aspirin; Z79.4 Long term (current) use of insulin; Z88.0 Allergy status to penicillin; Z91.030 Bee allergy status; Z88.8 Allergy status to other drugs, medicaments and biological substances; Z88.2 Allergy status to sulfonamides; Z91.040 Latex allergy status; Z88.5 Allergy status to narcotic agent; B96.1 Klebsiella pneumoniae [K. pneumoniae] as the cause of diseases classified elsewhere; K57.30 Diverticulosis of large intestine without perforation or abscess without bleeding

== ENCOUNTER 2021-11-01 15:13 | Inpatient (IN) | payer MEDICARE, MEDICAID ==
[~2021-11-01] VITALS: Ht 162.6 cm; Wt 108.0 kg
[2021-11-01] MEDS: SINEMET 25-100 MG TAB PO SCH (01:51)
[~2021-11-01 15:13] MED LIST changes: +ASPI-161 PO; +CARB-89 PO; +FLON1SPR; +KETO10TAB PO; +LOSA50TA28 PO; -LOSA50TA88 PO; -MONT10TA10 PO; +MONT10TA97 PO; +NORT25CA2 PO; +OMEP40CA4 PO; +OMEP40CA5 PO; -OMEP40CA97 PO; +TOPI100T9 PO; +TOPR25TA PO; +VASC1CAP2 PO; +VENL75CA2 PO
[2021-11-01 18:20] LABS: BASO # 0.1 10^3/uL (0.0-0.2); BASO % 0.6 % (0.0-1.0); EOS # 0.5 10^3/uL (0.0-0.5); EOS % 2.8 % (0.0-3.0); HEMATOCRIT 38.1 % (36.0-47.0); HEMOGLOBIN 12.2 g/dl (12.0-15.5); LYMPH # 5.7 10^3/uL (1.5-5.0); LYMPH % 32.4 % (24.0-44.0); MEAN CORPUSCULAR HEMOGLOBIN 27.9 pg (27.0-33.0); MEAN CORPUSCULAR VOLUME 87.2 fl (80.0-96.0); MONO # 1.2 10^3/uL (0.0-0.8); MONO % 6.8 % (2.0-8.0); NEUTROPHILS # 9.9 10^3/uL (1.5-8.5); NEUTROPHILS % 56.8 % (36.0-66.0); PLATELET COUNT, AUTOMATED 348 10^3/uL (150-450); RED BLOOD COUNT 4.37 10^6/uL (4.00-5.40); WHITE BLOOD COUNT 17.4 10^3/uL (4.0-10.0)
[2021-11-01 18:41] LABS: ALT/SGPT 14 U/L (12-78); BILIRUBIN,DIRECT < 0.1 MG/DL (0.0-0.2); BILIRUBIN,TOTAL 0.2 MG/DL (0.2-1.0); BLOOD UREA NITROGEN 31 MG/DL (7-18); CALCIUM LEVEL 9.2 MG/DL (8.8-10.2); CARBON DIOXIDE LEVEL 24 MEQ/L (21-32); CHLORIDE LEVEL 109 MEQ/L (98-107); CREATININE FOR GFR 1.29 MG/DL (0.55-1.30); GLOMERULAR FILTRATION RATE 43.8 (>45); GLUCOSE, FASTING 118 MG/DL (70-100); POTASSIUM SERUM 4.5 MEQ/L (3.5-5.1); SODIUM LEVEL 140 MEQ/L (136-145)
[2021-11-01] MEDS ORDERED: NYST1POW9 TOP (18:41)
[2021-11-01] MEDS ORDERED: OXYB10TA23 PO (18:41)
[2021-11-01] MEDS ORDERED: GLIP10TA18 PO (18:41)
[2021-11-01] MEDS ORDERED: FIAS100I2 SC (18:41)
[2021-11-01] MEDS ORDERED: HOME MED LIST COMPLETE! XX SCH (18:45)
[2021-11-01] MEDS ORDERED: ISOVUE-370 76% 100ML VIAL As Ordered ONE (19:07)
[2021-11-01 20:16] LABS: RSV AMPLIFICATION NEGATIVE (NEGATIVE)
[2021-11-01] MEDS ORDERED: ERTAPENEM SODIUM 1 GM in NS MINI-BAG PLUS 50 ML IV ONE (20:20)
[2021-11-01] MEDS ORDERED: ALBUTEROL SULFATE 2.5 MG/0.5 ML INH NEB SOLN INH PRN (22:30)
[2021-11-01] MEDS ORDERED: PANTOPRAZOLE 40MG TAB (PROTONIX) PO ONE (23:00)
[2021-11-01] MEDS: ATORVASTATIN 20 MG TAB PO SCH (23:19)
[2021-11-01] MEDS: GABAPENTIN 300 MG CAP PO SCH (23:19)
[2021-11-01] MEDS: TOPIRAMATE (TopAMAX) 100 MG TAB PO SCH (23:20)
[2021-11-01] MEDS: METOPROLOL SUCC *XL* 25MG TAB (TopROL *XL*) PO SCH (23:24)
[2021-11-01] MEDS: LEVEMIR (INSULIN DETEMIR) 1 UNITS/0.01ML SC SCH (23:25)
[2021-11-02] MEDS ORDERED: GLUCOSE 4GM CHEW TABLET PO PRN (00:30)
[2021-11-02] MEDS ORDERED: DEXTROSE 50% 50 ML SYRINGE IV PRN (00:30)
[2021-11-02] MEDS ORDERED: GLUCAGON INJ 1MG VIAL SC PRN (00:30)
[2021-11-02 01:35] VITALS: BP 121/77
[2021-11-02] MEDS: VENLAFAXINE **XR** 75MG CAPSULE PO SCH ×3 (02:11→21:33)
[2021-11-02] MEDS: NORTRIPTYLINE 25 MG CAP PO SCH ×2 (02:11→21:33)
[2021-11-02 06:00] VITALS: BP 141/72
[2021-11-02] MEDS: HEPARIN SOD (PORCINE) 5000UNITS/ML 1ML VIAL/SYRINGE SC SCH ×3 (06:02→21:32)
[2021-11-02 06:24] LABS: CALCIUM LEVEL 8.8 MG/DL (8.8-10.2); CREATININE FOR GFR 1.2 MG/DL (0.55-1.30); GLOMERULAR FILTRATION RATE 47.6 (>45); POTASSIUM SERUM 4.2 MEQ/L (3.5-5.1)
[2021-11-02] MEDS: HumaLOG INSULIN (NovoLOG) PER UNIT SC SCH ×6 (08:49→17:17)
[2021-11-02] MEDS: SINEMET 25-100 MG TAB PO SCH ×3 (08:51→17:18)
[2021-11-02] MEDS: SITagliptin 50 MG TAB (JANUVIA) PO SCH (08:56)
[2021-11-02] MEDS: GABAPENTIN 300 MG CAP PO SCH ×2 (08:56→21:36)
[2021-11-02] MEDS: DOCUSATE SODIUM 100MG CAPSULE PO SCH ×2 (08:56→21:33)
[2021-11-02] MEDS: oxyBUTYnin *DITROPAN XL* 5 MG TABCR PO SCH (09:01)
[2021-11-02] MEDS: LOSARTAN 50MG TABLET PO SCH (09:01)
[2021-11-02] MEDS: MEROPENEM INJ 1 GM in IV 1 EA IV SCH ×2 (09:02→17:17)
[2021-11-02] MEDS: LEVEMIR (INSULIN DETEMIR) 1 UNITS/0.01ML SC SCH ×2 (09:02→21:32)
[2021-11-02 14:00] VITALS: BP 132/73
[2021-11-02] MEDS ORDERED: HumaLOG INSULIN (NovoLOG) PER UNIT SC SCH (21:00)
[2021-11-02] MEDS ORDERED: ASPIRIN 81MG ENTERIC TABLET PO SCH (21:00)
[2021-11-02] MEDS: ATORVASTATIN 20 MG TAB PO SCH (21:33)
[2021-11-02] MEDS: METOPROLOL SUCC *XL* 25MG TAB (TopROL *XL*) PO SCH (21:35)
[2021-11-02] MEDS: TOPIRAMATE (TopAMAX) 100 MG TAB PO SCH (21:36)
[2021-11-02] MEDS: ACETAMINOPHEN TAB 650MG DOSE (2X325MG) PO PRN (21:36)
[2021-11-02 22:00] VITALS: BP 127/69
[2021-11-02] MEDS ORDERED: ERTAPENEM SODIUM 1 GM in NS MINI-BAG PLUS 50 ML IV SCH (22:00)
[2021-11-03] MEDS: MEROPENEM INJ 1 GM in IV 1 EA IV SCH ×2 (01:04→08:34)
[2021-11-03 05:50] LABS: BASO # 0.1 10^3/uL (0.0-0.2); BASO % 0.7 % (0.0-1.0); EOS # 0.6 10^3/uL (0.0-0.5); EOS % 4.6 % (0.0-3.0); HEMATOCRIT 39.2 % (36.0-47.0); HEMOGLOBIN 12.2 g/dl (12.0-15.5); LYMPH # 4.7 10^3/uL (1.5-5.0); LYMPH % 37.1 % (24.0-44.0); MEAN CORPUSCULAR HEMOGLOBIN 27.1 pg (27.0-33.0); MEAN CORPUSCULAR HGB CONC 31.1 g/dl (32.0-36.5); MEAN CORPUSCULAR VOLUME 87.1 fl (80.0-96.0); MONO # 0.7 10^3/uL (0.0-0.8); MONO % 5.8 % (2.0-8.0); NEUTROPHILS # 6.4 10^3/uL (1.5-8.5); NEUTROPHILS % 50.7 % (36.0-66.0); PLATELET COUNT, AUTOMATED 342 10^3/uL (150-450); WHITE BLOOD COUNT 12.6 10^3/uL (4.0-10.0)
[2021-11-03 06:00] VITALS: BP 143/80
[2021-11-03 06:19] LABS: BLOOD UREA NITROGEN 24 MG/DL (7-18); CALCIUM LEVEL 9.3 MG/DL (8.8-10.2); CARBON DIOXIDE LEVEL 26 MEQ/L (21-32); CHLORIDE LEVEL 109 MEQ/L (98-107); CREATININE FOR GFR 0.94 MG/DL (0.55-1.30); GLOMERULAR FILTRATION RATE > 60.0 (>45); GLUCOSE, FASTING 203 MG/DL (70-100); MAGNESIUM LEVEL 2.2 MG/DL (1.8-2.4); PHOSPHORUS LEVEL 4.3 MG/DL (2.5-4.9); POTASSIUM SERUM 4.8 MEQ/L (3.5-5.1); SODIUM LEVEL 141 MEQ/L (136-145)
[2021-11-03] MEDS: HEPARIN SOD (PORCINE) 5000UNITS/ML 1ML VIAL/SYRINGE SC SCH ×2 (06:22→13:40)
[2021-11-03] MEDS: HumaLOG INSULIN (NovoLOG) PER UNIT SC SCH ×4 (08:27→13:41)
[2021-11-03] MEDS: LEVEMIR (INSULIN DETEMIR) 1 UNITS/0.01ML SC SCH (08:32)
[2021-11-03] MEDS: oxyBUTYnin *DITROPAN XL* 5 MG TABCR PO SCH (08:32)
[2021-11-03] MEDS: VENLAFAXINE **XR** 75MG CAPSULE PO SCH (08:32)
[2021-11-03 08:33] VITALS: BP 143/80
[2021-11-03] MEDS: ACETAMINOPHEN TAB 650MG DOSE (2X325MG) PO PRN (08:33)
[2021-11-03] MEDS: DOCUSATE SODIUM 100MG CAPSULE PO SCH (08:33)
[2021-11-03] MEDS: LOSARTAN 50MG TABLET PO SCH (08:33)
[2021-11-03] MEDS: GABAPENTIN 300 MG CAP PO SCH (08:33)
[2021-11-03] MEDS: SITagliptin 50 MG TAB (JANUVIA) PO SCH (08:34)
[2021-11-03] MEDS: SINEMET 25-100 MG TAB PO SCH ×2 (08:34→13:44)
[2021-11-03] MEDS ORDERED: ERTAPENEM SODIUM 1 GM in NS MINI-BAG PLUS 50 ML IV SCH (10:00)
[2021-11-03] MEDS ORDERED: LIDOCAINE 1% MDV 20ML VIAL As Ordered ONE (11:38)
[2021-11-03 13:30] VITALS: BP 138/66
[2021-11-03] MEDS ORDERED: ERTA1INJ3 IJ (14:11)
== END 2021-11-03 15:35 | disposition home or self-care (01) | DRG 690 ==
LOC: M ED 15:13 → M ED INP 15:14 → ENRESERV 23:48 → M MS5PR 11-02 01:45 → OBSVTOIN 11-02 16:34
PROVIDERS: ADMIT Internal Medicine; ATTEND Internal Medicine
PROC: 05HC33Z Insertion of Infusion Device into Left Basilic Vein, Percutaneous Approach (ICD-10-PCS; principal; 2021-11-03 11:53)
DX: N30.90 Cystitis, unspecified without hematuria (principal); G20 Parkinson's disease; K21.9 Gastro-esophageal reflux disease without esophagitis; I10 Essential (primary) hypertension; F32.A Depression, unspecified; E11.9 Type 2 diabetes mellitus without complications; E78.00 Pure hypercholesterolemia, unspecified; Z79.4 Long term (current) use of insulin; Z79.82 Long term (current) use of aspirin; Z88.0 Allergy status to penicillin; Z88.2 Allergy status to sulfonamides; Z91.040 Latex allergy status; Z88.5 Allergy status to narcotic agent; J45.909 Unspecified asthma, uncomplicated

== ENCOUNTER 2021-12-02 15:18 | Observation (INO) | payer MEDICARE, MEDICAID ==
[~2021-12-02] VITALS: Ht 162.6 cm; Wt 104.7 kg
[~2021-12-02 15:18] MED LIST changes: +ERTA1INJ3 IJ; +FIAS100I2 SC; +GLIP10TA18 PO; +NYST1POW9 TOP; +OXYB10TA23 PO
[2021-12-02 19:39] LABS: BASO # 0.1 10^3/uL (0.0-0.2); BASO % 0.6 % (0.0-1.0); EOS # 0.2 10^3/uL (0.0-0.5); EOS % 1.1 % (0.0-3.0); HEMOGLOBIN 12.7 g/dl (12.0-15.5); LYMPH # 3.4 10^3/uL (1.5-5.0); LYMPH % 21.2 % (24.0-44.0); MEAN CORPUSCULAR HEMOGLOBIN 27.7 pg (27.0-33.0); MEAN CORPUSCULAR HGB CONC 31.8 g/dl (32.0-36.5); MEAN CORPUSCULAR VOLUME 87.3 fl (80.0-96.0); NEUTROPHILS # 11.2 10^3/uL (1.5-8.5); NEUTROPHILS % 70.5 % (36.0-66.0); PLATELET COUNT, AUTOMATED 323 10^3/uL (150-450); RED BLOOD COUNT 4.58 10^6/uL (4.00-5.40); WHITE BLOOD COUNT 15.8 10^3/uL (4.0-10.0)
[2021-12-02 20:11] LABS: ALBUMIN 3.2 GM/DL (3.2-5.2); BILIRUBIN,TOTAL 0.3 MG/DL (0.2-1.0); CALCIUM LEVEL 9.5 MG/DL (8.8-10.2); CREATININE FOR GFR 1.52 MG/DL (0.55-1.30); GLOMERULAR FILTRATION RATE 36.2 (>45); POTASSIUM SERUM 5.5 MEQ/L (3.5-5.1); TOTAL PROTEIN 7.9 GM/DL (6.4-8.2)
[2021-12-02] MEDS ORDERED: HOME MED LIST COMPLETE! XX SCH (20:30)
[2021-12-02] MEDS: ASPIRIN 81MG ENTERIC TABLET PO SCH (21:00)
[2021-12-02] MEDS: VENLAFAXINE **XR** 75MG CAPSULE PO SCH (21:00)
[2021-12-02] MEDS: METOPROLOL SUCC *XL* 25MG TAB (TopROL *XL*) PO SCH (21:00)
[2021-12-02] MEDS: GABAPENTIN 300 MG CAP PO SCH (21:00)
[2021-12-02] MEDS: TOPIRAMATE (TopAMAX) 100 MG TAB PO SCH (21:00)
[2021-12-02 21:27] LABS: RSV AMPLIFICATION NEGATIVE (NEGATIVE)
[2021-12-02] MEDS ORDERED: GLUCOSE 4GM CHEW TABLET PO PRN (23:05)
[2021-12-02] MEDS ORDERED: DEXTROSE 50% 50 ML SYRINGE IV PRN (23:05)
[2021-12-02] MEDS: NS 1,000 ML IV SCH (23:05)
[2021-12-02] MEDS ORDERED: ALBUTEROL SULFATE 2.5 MG/0.5 ML INH NEB SOLN INH PRN (23:05)
[2021-12-02] MEDS ORDERED: GLUCAGON INJ 1MG VIAL SC PRN (23:05)
[2021-12-03] MEDS ORDERED: ERTAPENEM SODIUM 1 GM in NS MINI-BAG PLUS 50 ML IV ONE ×2
[2021-12-03 02:03] VITALS: BP 135/68
[2021-12-03] MEDS: SINEMET 25-100 MG TAB PO SCH ×4 (02:33→20:57)
[2021-12-03] MEDS: NORTRIPTYLINE 25 MG CAP PO SCH ×2 (02:48→20:57)
[2021-12-03 06:00] VITALS: BP 135/67
[2021-12-03] MEDS: INSULIN LISPRO (NovoLOG) PER UNIT SC SCH ×5 (06:00→20:49)
[2021-12-03 07:06] LABS: ALBUMIN 2.8 GM/DL (3.2-5.2); ALT/SGPT < 6 U/L (12-78); BILIRUBIN,TOTAL 0.3 MG/DL (0.2-1.0); BLOOD UREA NITROGEN 27 MG/DL (7-18); CALCIUM LEVEL 8.6 MG/DL (8.8-10.2); CARBON DIOXIDE LEVEL 26 MEQ/L (21-32); CHLORIDE LEVEL 109 MEQ/L (98-107); CREATININE FOR GFR 1.21 MG/DL (0.55-1.30); GLOMERULAR FILTRATION RATE 47.1 (>45); GLUCOSE, FASTING 62 MG/DL (70-100); LIPASE 1747 U/L (73-393); POTASSIUM SERUM 3.7 MEQ/L (3.5-5.1); SODIUM LEVEL 141 MEQ/L (136-145); TOTAL PROTEIN 7.3 GM/DL (6.4-8.2); TRIGLYCERIDES LEVEL 141 MG/DL (<150)
[2021-12-03] MEDS: oxyBUTYnin *DITROPAN XL* 5 MG TABCR PO SCH (08:54)
[2021-12-03] MEDS: PANTOPRAZOLE 40MG TAB (PROTONIX) PO SCH (08:54)
[2021-12-03] MEDS: GABAPENTIN 300 MG CAP PO SCH ×2 (08:54→20:56)
[2021-12-03] MEDS: VENLAFAXINE **XR** 75MG CAPSULE PO SCH ×2 (08:54→20:57)
[2021-12-03] MEDS: LOSARTAN 50MG TABLET PO SCH (08:55)
[2021-12-03] MEDS: NS 1,000 ML IV SCH ×2 (08:55→21:00)
[2021-12-03 09:33] LABS: HEMATOCRIT 36.3 % (36.0-47.0); HEMOGLOBIN 11.4 g/dl (12.0-15.5); MEAN CORPUSCULAR HEMOGLOBIN 27.8 pg (27.0-33.0); MEAN CORPUSCULAR HGB CONC 31.4 g/dl (32.0-36.5); MEAN CORPUSCULAR VOLUME 88.5 fl (80.0-96.0); PLATELET COUNT, AUTOMATED 282 10^3/uL (150-450); WHITE BLOOD COUNT 13.6 10^3/uL (4.0-10.0)
[2021-12-03 09:52] LABS: CHOLESTEROL RISK RATIO 3.878 (<5)
[2021-12-03 09:56] LABS: HEMOGLOBIN A1c 7.7 %
[2021-12-03] MEDS ORDERED: ERTAPENEM 1GM VIAL(INVanz) (J1335 PER 500MG) IM SCH (13:00)
[2021-12-03 14:00] VITALS: BP 115/52
[2021-12-03 19:15] LABS: AMYLASE 101 U/L (25-115); LIPASE 1316 U/L (73-393)
[2021-12-03 20:24] VITALS: BP 122/63
[2021-12-03] MEDS: TOPIRAMATE (TopAMAX) 100 MG TAB PO SCH (20:56)
[2021-12-03] MEDS: ASPIRIN 81MG ENTERIC TABLET PO SCH (20:56)
[2021-12-03] MEDS: ERTAPENEM SODIUM 1 GM in NS MINI-BAG PLUS 50 ML IV SCH (20:56)
[2021-12-03] MEDS: ACETAMINOPHEN TAB 650MG DOSE (2X325MG) PO PRN (20:57)
[2021-12-03] MEDS: METOPROLOL SUCC *XL* 25MG TAB (TopROL *XL*) PO SCH (20:59)
[2021-12-04 04:38] VITALS: BP 134/61
[2021-12-04 06:04] LABS: HEMATOCRIT 38.3 % (36.0-47.0); HEMOGLOBIN 11.9 g/dl (12.0-15.5); MEAN CORPUSCULAR HEMOGLOBIN 27.7 pg (27.0-33.0); MEAN CORPUSCULAR HGB CONC 31.1 g/dl (32.0-36.5); MEAN CORPUSCULAR VOLUME 89.1 fl (80.0-96.0); PLATELET COUNT, AUTOMATED 260 10^3/uL (150-450); WHITE BLOOD COUNT 9.9 10^3/uL (4.0-10.0)
[2021-12-04 06:25] LABS: BLOOD UREA NITROGEN 17 MG/DL (7-18); CARBON DIOXIDE LEVEL 25 MEQ/L (21-32); CHLORIDE LEVEL 113 MEQ/L (98-107); CREATININE FOR GFR 0.95 MG/DL (0.55-1.30); GLOMERULAR FILTRATION RATE > 60.0 (>45); GLUCOSE, FASTING 174 MG/DL (70-100); POTASSIUM SERUM 4.7 MEQ/L (3.5-5.1); SODIUM LEVEL 143 MEQ/L (136-145)
[2021-12-04] MEDS: GABAPENTIN 300 MG CAP PO SCH ×2 (08:04→22:04)
[2021-12-04] MEDS: oxyBUTYnin *DITROPAN XL* 5 MG TABCR PO SCH (08:04)
[2021-12-04] MEDS: PANTOPRAZOLE 40MG TAB (PROTONIX) PO SCH (08:04)
[2021-12-04] MEDS: VENLAFAXINE **XR** 75MG CAPSULE PO SCH ×2 (08:04→22:04)
[2021-12-04] MEDS: SINEMET 25-100 MG TAB PO SCH ×3 (08:04→22:05)
[2021-12-04] MEDS: ENOXAPARIN 40MG/0.4ML SYRINGE (J1650 PER 10MG) SC SCH (08:04)
[2021-12-04] MEDS: NS 1,000 ML IV SCH (08:05)
[2021-12-04] MEDS: LOSARTAN 50MG TABLET PO SCH (08:05)
[2021-12-04] MEDS: INSULIN LISPRO (NovoLOG) PER UNIT SC SCH ×4 (08:05→22:07)
[2021-12-04] MEDS ORDERED: ISOVUE-370 76% 100ML VIAL As Ordered ONE (09:32)
[2021-12-04] MEDS: DOCUSATE SODIUM 100MG CAPSULE PO SCH ×2 (10:35→22:04)
[2021-12-04 14:00] VITALS: BP 120/71
[2021-12-04] MEDS ORDERED: BASA100I SC (18:52)
[2021-12-04] MEDS ORDERED: COLA100C5 PO (18:52)
[2021-12-04] MEDS ORDERED: SENN18TA PO (18:52)
[2021-12-04 22:00] VITALS: BP 134/76
[2021-12-04] MEDS: NORTRIPTYLINE 25 MG CAP PO SCH (22:04)
[2021-12-04] MEDS: ASPIRIN 81MG ENTERIC TABLET PO SCH (22:04)
[2021-12-04] MEDS: TOPIRAMATE (TopAMAX) 100 MG TAB PO SCH (22:05)
[2021-12-04] MEDS: MONTELUKAST 10 MG TAB PO SCH (22:05)
[2021-12-04] MEDS: SENNA 8.6 MG TAB (SENOKOT) PO SCH (22:05)
[2021-12-04] MEDS: ERTAPENEM SODIUM 1 GM in NS MINI-BAG PLUS 50 ML IV SCH (22:06)
[2021-12-04] MEDS: METOPROLOL SUCC *XL* 25MG TAB (TopROL *XL*) PO SCH (22:06)
[2021-12-04] MEDS: LEVEMIR (INSULIN DETEMIR) 1 UNITS/0.01ML SC SCH (22:07)
[2021-12-05] MEDS: NS 1,000 ML IV SCH ×3 (00:19→16:54)
[2021-12-05 06:00] VITALS: BP 127/75
[2021-12-05 07:04] LABS: HEMATOCRIT 36.1 % (36.0-47.0); HEMOGLOBIN 11.6 g/dl (12.0-15.5); MEAN CORPUSCULAR HEMOGLOBIN 28.2 pg (27.0-33.0); MEAN CORPUSCULAR HGB CONC 32.1 g/dl (32.0-36.5); MEAN CORPUSCULAR VOLUME 87.6 fl (80.0-96.0); PLATELET COUNT, AUTOMATED 279 10^3/uL (150-450); RED BLOOD COUNT 4.12 10^6/uL (4.00-5.40); WHITE BLOOD COUNT 8.9 10^3/uL (4.0-10.0)
[2021-12-05 07:29] LABS: CALCIUM LEVEL 9.1 MG/DL (8.8-10.2); CREATININE FOR GFR 0.99 MG/DL (0.55-1.30); GLOMERULAR FILTRATION RATE 59.4 (>45); POTASSIUM SERUM 4.9 MEQ/L (3.5-5.1)
[2021-12-05] MEDS: LEVEMIR (INSULIN DETEMIR) 1 UNITS/0.01ML SC SCH ×2 (08:24→20:53)
[2021-12-05] MEDS: INSULIN LISPRO (NovoLOG) PER UNIT SC SCH ×4 (08:24→20:53)
[2021-12-05] MEDS: ENOXAPARIN 40MG/0.4ML SYRINGE (J1650 PER 10MG) SC SCH (08:24)
[2021-12-05] MEDS: GABAPENTIN 300 MG CAP PO SCH ×2 (08:25→20:51)
[2021-12-05] MEDS: PANTOPRAZOLE 40MG TAB (PROTONIX) PO SCH (08:25)
[2021-12-05] MEDS: DOCUSATE SODIUM 100MG CAPSULE PO SCH ×2 (08:25→20:51)
[2021-12-05] MEDS: LOSARTAN 50MG TABLET PO SCH (08:25)
[2021-12-05] MEDS: SINEMET 25-100 MG TAB PO SCH ×3 (08:25→20:51)
[2021-12-05] MEDS: VENLAFAXINE **XR** 75MG CAPSULE PO SCH ×2 (08:25→20:51)
[2021-12-05] MEDS: oxyBUTYnin *DITROPAN XL* 5 MG TABCR PO SCH (08:25)
[2021-12-05 14:00] VITALS: BP 150/81
[2021-12-05] MEDS: ERTAPENEM SODIUM 1 GM in NS MINI-BAG PLUS 50 ML IV SCH (20:50)
[2021-12-05] MEDS: ASPIRIN 81MG ENTERIC TABLET PO SCH (20:51)
[2021-12-05] MEDS: MONTELUKAST 10 MG TAB PO SCH (20:51)
[2021-12-05] MEDS: SENNA 8.6 MG TAB (SENOKOT) PO SCH (20:51)
[2021-12-05] MEDS: NORTRIPTYLINE 25 MG CAP PO SCH (20:51)
[2021-12-05] MEDS: TOPIRAMATE (TopAMAX) 100 MG TAB PO SCH (20:51)
[2021-12-05] MEDS: METOPROLOL SUCC *XL* 25MG TAB (TopROL *XL*) PO SCH (20:52)
[2021-12-05 22:00] VITALS: BP 149/79
[2021-12-05] MEDS ORDERED: FAMOTIDINE 20MG/2ML VIAL IVP ONE (22:30)
[2021-12-05] MEDS ORDERED: diphenhydrAMINE 50MG/ML VIAL (J1200) IV ONE (22:30)
[2021-12-05] MEDS: NITROFURANTOIN (MACROBID) 100 MG CAP PO SCH (23:19)
[2021-12-06] MEDS: ACETAMINOPHEN TAB 650MG DOSE (2X325MG) PO PRN (00:48)
[2021-12-06] MEDS: NS 1,000 ML IV SCH (04:47)
[2021-12-06 05:59] LABS: HEMATOCRIT 38.8 % (36.0-47.0); HEMOGLOBIN 12.3 g/dl (12.0-15.5); MEAN CORPUSCULAR HEMOGLOBIN 27.5 pg (27.0-33.0); MEAN CORPUSCULAR HGB CONC 31.7 g/dl (32.0-36.5); MEAN CORPUSCULAR VOLUME 86.8 fl (80.0-96.0); PLATELET COUNT, AUTOMATED 268 10^3/uL (150-450); RED BLOOD COUNT 4.47 10^6/uL (4.00-5.40); WHITE BLOOD COUNT 8.9 10^3/uL (4.0-10.0)
[2021-12-06 06:00] VITALS: BP 152/82
[2021-12-06 06:21] LABS: CALCIUM LEVEL 8.8 MG/DL (8.8-10.2); GLOMERULAR FILTRATION RATE 58.7 (>45); POTASSIUM SERUM 4.8 MEQ/L (3.5-5.1)
[2021-12-06] MEDS ORDERED: ONDANSETRON 4MG/2ML VIAL IV PRN (08:40)
[2021-12-06] MEDS: PANTOPRAZOLE 40MG TAB (PROTONIX) PO SCH (09:35)
[2021-12-06] MEDS: DOCUSATE SODIUM 100MG CAPSULE PO SCH (09:35)
[2021-12-06] MEDS: NITROFURANTOIN (MACROBID) 100 MG CAP PO SCH (09:35)
[2021-12-06] MEDS: VENLAFAXINE **XR** 75MG CAPSULE PO SCH (09:35)
[2021-12-06] MEDS: LEVEMIR (INSULIN DETEMIR) 1 UNITS/0.01ML SC SCH (09:35)
[2021-12-06] MEDS: INSULIN LISPRO (NovoLOG) PER UNIT SC SCH ×2 (09:35→12:03)
[2021-12-06] MEDS: oxyBUTYnin *DITROPAN XL* 5 MG TABCR PO SCH (09:35)
[2021-12-06] MEDS: GABAPENTIN 300 MG CAP PO SCH (09:35)
[2021-12-06] MEDS: SINEMET 25-100 MG TAB PO SCH (09:35)
[2021-12-06 09:37] VITALS: BP 149/84
[2021-12-06] MEDS: ENOXAPARIN 40MG/0.4ML SYRINGE (J1650 PER 10MG) SC SCH (09:37)
[2021-12-06] MEDS: LOSARTAN 50MG TABLET PO SCH (09:37)
[2021-12-06] MEDS ORDERED: ONDA4TAB6 PO (12:33)
[2021-12-06] MEDS ORDERED: NITR100C2 PO (12:33)
== END 2021-12-06 15:46 | disposition home or self-care (01) ==
LOC: M ED 15:18 → M ED INP 15:19 → ENRESERV 12-03 00:38 → M MSPAV 12-03 02:04
PROVIDERS: ADMIT Internal Medicine; ATTEND Internal Medicine
DX: N39.0 Urinary tract infection, site not specified (principal); B96.20 Unspecified Escherichia coli [E. coli] as the cause of diseases classified elsewhere; E11.9 Type 2 diabetes mellitus without complications; K21.9 Gastro-esophageal reflux disease without esophagitis; I10 Essential (primary) hypertension; G20 Parkinson's disease; E78.5 Hyperlipidemia, unspecified; Z79.4 Long term (current) use of insulin; Z79.82 Long term (current) use of aspirin; Z79.84 Long term (current) use of oral hypoglycemic drugs; Z79.899 Other long term (current) drug therapy; Z88.0 Allergy status to penicillin; Z88.1 Allergy status to other antibiotic agents; Z91.030 Bee allergy status; Z91.040 Latex allergy status; Z88.5 Allergy status to narcotic agent; Z88.8 Allergy status to other drugs, medicaments and biological substances
CPT/HCPCS: 36415; 74176; 74178; 76705; 80048; 80053; 80061; 81001; 82150; 83036; 83690; 84478; 85025; 85027; 87088; 87186; 87631; 96361; 96365; 96366; 96372; 96375; 97161; 97530; 99284; G0378; J1335; J1650; J1815; J2405; Q9967

== ENCOUNTER → 2022-01-20 | Outpatient (REF) | payer MEDICARE, MEDICAID ==
[~2022-01-20] MED LIST changes: +ALBU2.5V10 INH; -ALBU83IN INH; +COLA100C5 PO; +NITR100C2 PO; +ONDA4TAB6 PO; +SENN18TA PO
[2022-01-20 18:05] LABS: APPEARANCE, URINE CLOUDY (CLEAR); BACTERIA, URINE AUTO NEGATIVE (NEGATIVE); BILIRUBIN, URINE AUTO NEGATIVE (NEGATIVE); BLOOD, URINE BLOOD NEGATIVE (NEGATIVE); COLOR, URINE AMBER (YELLOW); GLUCOSE, URINE (UA) AUTO NEGATIVE (NEGATIVE); KETONE, URINE AUTO TRACE mg/dL (NEGATIVE); LEUKOCYTE ESTERASE, URINE AUTO 3+ (NEGATIVE); MUCUS, URINE SMALL (NEGATIVE); NITRITE, URINE AUTO NEGATIVE (NEGATIVE); PROTEIN, URINE AUTO 1+ mg/dL (NEGATIVE); RBC, URINE AUTO 7 /HPF (0-3); SPECIFIC GRAVITY URINE AUTO 1.018 (1.002-1.035); SQUAMOUS EPITHELIAL CELL UR AU 8 /HPF (0-6); UROBILINOGEN, URINE AUTO 0.2 mg/dL (0.0-2.0); WBC, URINE AUTO TNTC /HPF (0-3)
== END ==
LOC: M SMT 16:46
PROVIDERS: ATTEND Urology
DX: N39.0 Urinary tract infection, site not specified (principal)

== ENCOUNTER → 2022-04-18 | Outpatient (CLI) | payer MEDICARE, MEDICAID ==
[~2022-04-18] MED LIST changes: +ATOR40TA75 PO; +BOTO200I; +CLAR10CA3 PO; +D-MA500C2 PO; +FLUTISP INH; +LEVE1INJ5; +LEVO25TA5 PO; +OZEM2INJ SC; +TAMS1CAP17 PO
== END ==
LOC: M LABSMTC 10:43
PROVIDERS: ATTEND Anesthesiology
DX: Z01.818 Encounter for other preprocedural examination (principal); Z11.52 Encounter for screening for COVID-19

== ENCOUNTER → 2022-04-18 | Outpatient (CLI) | payer MEDICARE, MEDICAID | LOC: M RAD 09:39 | PROVIDERS: ATTEND Internal Medicine Gastroenterology | DX: R93.5 Abnormal findings on diagnostic imaging of other abdominal regions, including retroperitoneum (principal) ==

== ENCOUNTER 2022-04-21 07:53 | Day surgery (SDC) | payer MEDICARE, MEDICAID ==
[~2022-04-21] VITALS: Ht 162.6 cm; Wt 95.3 kg
[~2022-04-21 07:53] MED LIST changes: +NS 1,000 ML IV ONE
[2022-04-21] MEDS ORDERED: LIDOCAINE 2% 100MG/5ML SDV (FOR ANES.) As Ordered ONE (09:12)
[2022-04-21] MEDS ORDERED: propofoL 200 MG/20 ML VIAL As Ordered ONE (09:12)
[2022-04-21 10:08] VITALS: BP 121/61
== END 2022-04-21 10:30 | disposition home or self-care (01) ==
LOC: M OPP 07:53
PROVIDERS: ATTEND Internal Medicine Gastroenterology
DX: Z12.11 Encounter for screening for malignant neoplasm of colon (principal); K64.8 Other hemorrhoids; K64.4 Residual hemorrhoidal skin tags; K57.30 Diverticulosis of large intestine without perforation or abscess without bleeding; K22.70 Barrett's esophagus without dysplasia; Z13.810 Encounter for screening for upper gastrointestinal disorder; Z79.02 Long term (current) use of antithrombotics/antiplatelets; Z79.1 Long term (current) use of non-steroidal anti-inflammatories (NSAID); Z79.4 Long term (current) use of insulin; Z79.51 Long term (current) use of inhaled steroids; Z79.82 Long term (current) use of aspirin; Z79.899 Other long term (current) drug therapy; Z88.0 Allergy status to penicillin; Z88.1 Allergy status to other antibiotic agents; Z88.5 Allergy status to narcotic agent; Z91.030 Bee allergy status; Z91.040 Latex allergy status; Z85.01 Personal history of malignant neoplasm of esophagus; Z87.19 Personal history of other diseases of the digestive system; Z86.73 Personal history of transient ischemic attack (TIA), and cerebral infarction without residual deficits; E11.9 Type 2 diabetes mellitus without complications; G43.909 Migraine, unspecified, not intractable, without status migrainosus; G20 Parkinson's disease; K74.60 Unspecified cirrhosis of liver; J45.909 Unspecified asthma, uncomplicated
CPT/HCPCS: 43239; 88305; G0121

== ENCOUNTER → 2022-05-16 | Outpatient (CLI) | payer MEDICARE, MEDICAID ==
[~2022-05-16] MED LIST changes: -NS 1,000 ML IV ONE
== END ==
LOC: M RAD 08:38
PROVIDERS: ATTEND Internal Medicine Gastroenterology
DX: R12 Heartburn (principal)
CPT/HCPCS: 78264; A9541

== ENCOUNTER → 2022-05-26 | Outpatient (CLI) | payer MEDICARE, MEDICAID | LOC: M PAIN 13:00 | PROVIDERS: ATTEND Nurse Practitioner Family | DX: M79.10 Myalgia, unspecified site (principal); M54.2 Cervicalgia; G89.29 Other chronic pain; E11.9 Type 2 diabetes mellitus without complications; I10 Essential (primary) hypertension; G20 Parkinson's disease; Z96.652 Presence of left artificial knee joint; Z86.73 Personal history of transient ischemic attack (TIA), and cerebral infarction without residual deficits; Z88.0 Allergy status to penicillin; Z88.1 Allergy status to other antibiotic agents; Z88.2 Allergy status to sulfonamides; Z88.5 Allergy status to narcotic agent; Z88.8 Allergy status to other drugs, medicaments and biological substances; Z91.030 Bee allergy status; Z91.040 Latex allergy status; Z79.4 Long term (current) use of insulin; Z79.82 Long term (current) use of aspirin; Z79.84 Long term (current) use of oral hypoglycemic drugs; Z79.899 Other long term (current) drug therapy ==

== ENCOUNTER → 2022-07-24 | Outpatient (CLI) | payer MEDICARE, MEDICAID ==
[~2022-07-24] MED LIST changes: +BUPIVACAINE HCL 0.25% 10ML VIAL As Ordered ONE; +BUPIVACAINE HCL 0.25% 30ML VIAL As Ordered ONE; +CARB-113 PO; -CARB-89 PO; +TRIAMCINOLONE ACETONIDE SUSP 40MG/ML 1ML VIAL As Ordered ONE; +diazePAM 5MG TABLET As Ordered ONE
== END ==
LOC: M PAIN 07:30
PROVIDERS: ATTEND Anesthesiology
DX: M79.18 Myalgia, other site (principal); G89.29 Other chronic pain; E11.9 Type 2 diabetes mellitus without complications; G47.30 Sleep apnea, unspecified; I10 Essential (primary) hypertension; G20 Parkinson's disease; Z96.652 Presence of left artificial knee joint; Z86.73 Personal history of transient ischemic attack (TIA), and cerebral infarction without residual deficits; Z88.0 Allergy status to penicillin; Z88.1 Allergy status to other antibiotic agents; Z88.5 Allergy status to narcotic agent; Z88.8 Allergy status to other drugs, medicaments and biological substances; Z91.030 Bee allergy status; Z91.040 Latex allergy status; Z79.4 Long term (current) use of insulin; Z79.82 Long term (current) use of aspirin; Z79.899 Other long term (current) drug therapy

== ENCOUNTER → 2022-08-02 | Outpatient (REF) | payer MEDICARE, MEDICAID ==
[~2022-08-02] MED LIST changes: -BUPIVACAINE HCL 0.25% 10ML VIAL As Ordered ONE; -BUPIVACAINE HCL 0.25% 30ML VIAL As Ordered ONE; -TRIAMCINOLONE ACETONIDE SUSP 40MG/ML 1ML VIAL As Ordered ONE; -diazePAM 5MG TABLET As Ordered ONE
[2022-08-02 15:15] LABS: APPEARANCE, URINE MANUAL HAZY (CLEAR); COLOR, URINE MANUAL YELLOW (YELLOW)
[2022-08-02 15:17] LABS: BILIRUBIN, URINE MANUAL NEGATIVE (NEGATIVE); BLOOD URINE MANUAL POSITIVE (NEGATIVE); GLUCOSE, URINE (UA) MANUAL NEGATIVE (NEGATIVE); KETONE, URINE MANUAL 1+ mg/dL (NEGATIVE); LEUKOCYTE ESTERASE, URINE MAN POSITIVE (NEGATIVE); NITRITE, URINE MANUAL NEGATIVE (NEGATIVE); PROTEIN, URINE MANUAL TRACE mg/dL (NEGATIVE); SPECIFIC GRAVITY,URINE MANUAL 1.015 (1.002-1.035); UROBILINOGEN, URINE MANUAL NORMAL (NORMAL)
[2022-08-02 15:23] LABS: WBC, URINE 40-50 /hpf (0-3)
[2022-08-02 15:24] LABS: AMORPHOUS SEDIMENT, URINE SMALL AMOUNT (NEGATIVE); BACTERIA, URINE SMALL AMOUNT; CALCIUM OXALATE CRYSTALS,URINE MOD AMOUNT /hpf; HYALINE CAST, URINE NONE SEEN /lpf (0-1); SQUAMOUS EPITHELIAL CELL URINE MOD AMOUNT /hpf (SMALL AMT)
== END ==
LOC: M SMT 12:47
PROVIDERS: ATTEND Urology
DX: Z87.440 Personal history of urinary (tract) infections (principal)

== ENCOUNTER → 2022-09-13 | Outpatient (CLI) | payer MEDICARE, MEDICAID ==
[~2022-09-13] MED LIST changes: +INSU100I6; -LEVE1INJ5
== END ==
LOC: M PAIN 09:00
PROVIDERS: ATTEND Anesthesiology
DX: M51.16 Intervertebral disc disorders with radiculopathy, lumbar region (principal); M25.559 Pain in unspecified hip; R10.2 Pelvic and perineal pain; E11.9 Type 2 diabetes mellitus without complications; I10 Essential (primary) hypertension; G20 Parkinson's disease; Z96.652 Presence of left artificial knee joint; Z86.73 Personal history of transient ischemic attack (TIA), and cerebral infarction without residual deficits; Z88.0 Allergy status to penicillin; Z88.1 Allergy status to other antibiotic agents; Z88.2 Allergy status to sulfonamides; Z88.5 Allergy status to narcotic agent; Z88.8 Allergy status to other drugs, medicaments and biological substances; Z91.030 Bee allergy status; Z79.4 Long term (current) use of insulin; Z79.82 Long term (current) use of aspirin; Z79.899 Other long term (current) drug therapy

== ENCOUNTER → 2022-10-09 | Outpatient (CLI) | payer MEDICARE, MEDICAID | LOC: M LABSMTC 11:14 | PROVIDERS: ATTEND Anesthesiology | DX: Z20.822 Contact with and (suspected) exposure to COVID-19 (principal) ==

== ENCOUNTER → 2022-10-10 | Outpatient (CLI) | payer MEDICARE, MEDICAID ==
[~2022-10-10] MED LIST changes: +BUPIVACAINE HCL 0.25% 10ML VIAL As Ordered ONE; +BUPIVACAINE HCL 0.25% 30ML VIAL As Ordered ONE; +TRIAMCINOLONE ACETONIDE SUSP 40MG/ML 1ML VIAL As Ordered ONE; +diazePAM 5MG TABLET As Ordered ONE; +diphenhydrAMINE 25MG CAP As Ordered ONE
== END ==
LOC: M PAIN 14:00
PROVIDERS: ATTEND Anesthesiology
DX: M79.18 Myalgia, other site (principal); G89.29 Other chronic pain; R30.0 Dysuria; E11.9 Type 2 diabetes mellitus without complications; G47.30 Sleep apnea, unspecified; I10 Essential (primary) hypertension; G20 Parkinson's disease; Z96.652 Presence of left artificial knee joint; Z88.1 Allergy status to other antibiotic agents; Z88.2 Allergy status to sulfonamides; Z88.5 Allergy status to narcotic agent; Z88.8 Allergy status to other drugs, medicaments and biological substances; Z91.030 Bee allergy status; Z91.040 Latex allergy status; Z79.4 Long term (current) use of insulin; Z79.82 Long term (current) use of aspirin; Z79.899 Other long term (current) drug therapy
CPT/HCPCS: 20552; 81001; J3301

== ENCOUNTER → 2022-10-10 | Outpatient (REF) | payer MEDICARE, MEDICAID ==
[~2022-10-10] MED LIST changes: -BUPIVACAINE HCL 0.25% 10ML VIAL As Ordered ONE; -BUPIVACAINE HCL 0.25% 30ML VIAL As Ordered ONE; -TRIAMCINOLONE ACETONIDE SUSP 40MG/ML 1ML VIAL As Ordered ONE; -diazePAM 5MG TABLET As Ordered ONE; -diphenhydrAMINE 25MG CAP As Ordered ONE
[2022-10-10 18:21] LABS: APPEARANCE, URINE HAZY (CLEAR); BACTERIA, URINE AUTO NEGATIVE (NEGATIVE); BILIRUBIN, URINE AUTO NEGATIVE (NEGATIVE); BLOOD, URINE BLOOD 1+ (NEGATIVE); COLOR, URINE YELLOW (YELLOW); GLUCOSE, URINE (UA) AUTO NEGATIVE (NEGATIVE); KETONE, URINE AUTO TRACE mg/dL (NEGATIVE); LEUKOCYTE ESTERASE, URINE AUTO TRACE (NEGATIVE); MUCUS, URINE SMALL (NEGATIVE); NITRITE, URINE AUTO NEGATIVE (NEGATIVE); PROTEIN, URINE AUTO 1+ mg/dL (NEGATIVE); RBC, URINE AUTO 35 /HPF (0-3); SPECIFIC GRAVITY URINE AUTO 1.021 (1.002-1.035); SQUAMOUS EPITHELIAL CELL UR AU 2 /HPF (0-6); UROBILINOGEN, URINE AUTO 0.2 mg/dL (0.0-2.0); WBC, URINE AUTO 6 /HPF (0-3)
== END ==
LOC: M SMT 17:31
PROVIDERS: ATTEND Urology
DX: R30.0 Dysuria (principal)

== ENCOUNTER 2022-12-14 13:53 | Emergency (ER) | payer OTHER, MEDICARE, MEDICAID ==
[~2022-12-14] VITALS: Ht 162.6 cm; Wt 86.8 kg
[~2022-12-14 13:53] MED LIST changes: +FLUT50SP17 INH; -FLUTISP INH
[2022-12-14] MEDS: PERCOCET 5MG/325MG TAB PO ONE (14:55)
[2022-12-14 16:21] VITALS: BP 144/85
== END 2022-12-14 17:39 | disposition home or self-care (01) ==
LOC: M ED 13:53
DX: S16.1XXA Strain of muscle, fascia and tendon at neck level, initial encounter (principal); S70.01XA Contusion of right hip, initial encounter; S23.3XXA Sprain of ligaments of thoracic spine, initial encounter; V49.50XA Passenger injured in collision with unspecified motor vehicles in traffic accident, initial encounter; I10 Essential (primary) hypertension; E11.9 Type 2 diabetes mellitus without complications; Z87.442 Personal history of urinary calculi; Z79.4 Long term (current) use of insulin; Z88.2 Allergy status to sulfonamides; Z91.030 Bee allergy status; Z91.040 Latex allergy status; Z88.6 Allergy status to analgesic agent; Z88.8 Allergy status to other drugs, medicaments and biological substances; Z79.52 Long term (current) use of systemic steroids; Z79.811 Long term (current) use of aromatase inhibitors; Z79.899 Other long term (current) drug therapy

== ENCOUNTER → 2023-06-26 | Outpatient (REF) | payer MEDICARE, MEDICAID ==
[~2023-06-26] MED LIST changes: -FLUT50SP17 INH; +FLUTISP INH; +GLIP5TAB17 PO; -GLIP5TAB8 PO; -OXYB5TAB10 PO; +OXYB5TAB11 PO; +SENN-111 PO; -SENN18TA PO
[2023-06-26 17:31] LABS: APPEARANCE, URINE HAZY (CLEAR); BACTERIA, URINE AUTO 3+ (NEGATIVE); BILIRUBIN, URINE AUTO NEGATIVE (NEGATIVE); BLOOD, URINE BLOOD 1+ (NEGATIVE); CALCIUM OXALATE CRYSTALS SMALL; COLOR, URINE YELLOW (YELLOW); GLUCOSE, URINE (UA) AUTO NEGATIVE (NEGATIVE); KETONE, URINE AUTO TRACE mg/dL (NEGATIVE); LEUKOCYTE ESTERASE, URINE AUTO 3+ (NEGATIVE); MUCUS, URINE SMALL (NEGATIVE); NITRITE, URINE AUTO POSITIVE (NEGATIVE); PROTEIN, URINE AUTO 1+ mg/dL (NEGATIVE); RBC, URINE AUTO 19 /HPF (0-3); SQUAMOUS EPITHELIAL CELL UR AU 1 /HPF (0-6); TRANSITIONAL EPITHELIAL AUTO 2 /HPF; UROBILINOGEN, URINE AUTO 0.2 mg/dL (0.0-2.0); WBC, URINE AUTO 145 /HPF (0-3)
== END ==
LOC: M SMT 17:00
PROVIDERS: ATTEND Physician Assistant
DX: R30.0 Dysuria (principal)

== ENCOUNTER → 2023-12-12 | Outpatient (REF) | payer MEDICARE, MEDICAID ==
[~2023-12-12] MED LIST changes: -ASPI-161 PO; +ASPI-615 PO; +ONDA-282 PO; -ONDA4TAB6 PO; -OXYB5TAB11 PO; +OXYB5TAB14 PO
[2023-12-12 18:10] LABS: APPEARANCE, URINE HAZY (CLEAR); BACTERIA, URINE AUTO 3+ (NEGATIVE); BILIRUBIN, URINE AUTO NEGATIVE (NEGATIVE); BLOOD, URINE BLOOD NEGATIVE (NEGATIVE); COLOR, URINE YELLOW (YELLOW); GLUCOSE, URINE (UA) AUTO NEGATIVE (NEGATIVE); KETONE, URINE AUTO TRACE mg/dL (NEGATIVE); LEUKOCYTE ESTERASE, URINE AUTO 2+ (NEGATIVE); MUCUS, URINE SMALL (NEGATIVE); NITRITE, URINE AUTO POSITIVE (NEGATIVE); PROTEIN, URINE AUTO NEGATIVE (NEGATIVE); RBC, URINE AUTO 1 /HPF (0-3); SPECIFIC GRAVITY URINE AUTO 1.025 (1.002-1.035); SQUAMOUS EPITHELIAL CELL UR AU 1 /HPF (0-6); UROBILINOGEN, URINE AUTO 0.2 mg/dL (0.0-2.0); WBC, URINE AUTO 34 /HPF (0-3)
== END ==
LOC: M LABSMT 13:34
PROVIDERS: ATTEND Urology
DX: R39.9 Unspecified symptoms and signs involving the genitourinary system (principal)

== ENCOUNTER → 2024-02-12 | Outpatient (CLI) | payer MEDICARE, MEDICAID | LOC: M RAD 12:05 | PROVIDERS: ATTEND Physician Assistant | DX: M25.511 Pain in right shoulder (principal) ==

== ENCOUNTER → 2024-03-13 | Outpatient (REF) | payer MEDICARE, MEDICAID ==
[2024-03-13 18:44] LABS: APPEARANCE, URINE HAZY (CLEAR); BACTERIA, URINE AUTO NEGATIVE (NEGATIVE); BILIRUBIN, URINE AUTO NEGATIVE (NEGATIVE); BLOOD, URINE BLOOD NEGATIVE (NEGATIVE); COLOR, URINE YELLOW (YELLOW); GLUCOSE, URINE (UA) AUTO NEGATIVE (NEGATIVE); KETONE, URINE AUTO TRACE mg/dL (NEGATIVE); LEUKOCYTE ESTERASE, URINE AUTO 3+ (NEGATIVE); MUCUS, URINE SMALL (NEGATIVE); NITRITE, URINE AUTO NEGATIVE (NEGATIVE); PROTEIN, URINE AUTO NEGATIVE (NEGATIVE); RBC, URINE AUTO 2 /HPF (0-3); SPECIFIC GRAVITY URINE AUTO 1.015 (1.002-1.035); SQUAMOUS EPITHELIAL CELL UR AU 2 /HPF (0-6); UROBILINOGEN, URINE AUTO 0.2 mg/dL (0.0-2.0); WBC, URINE AUTO 32 /HPF (0-3)
== END ==
LOC: M LABSMT 15:24
PROVIDERS: ATTEND Urology
DX: N39.0 Urinary tract infection, site not specified (principal)

== ENCOUNTER → 2024-08-14 | Outpatient (REF) | payer MEDICARE, MEDICAID ==
[~2024-08-14] MED LIST changes: +GABA-1172 PO; -GABA-282 PO; +NYST1POW3 TOP; -NYST1POW9 TOP; -SENN-111 PO; +SENN-165 PO
[2024-08-14 15:04] LABS: APPEARANCE, URINE MANUAL CLEAR (CLEAR); COLOR, URINE MANUAL YELLOW (YELLOW)
[2024-08-14 15:10] LABS: BILIRUBIN, URINE MANUAL NEGATIVE (NEGATIVE); BLOOD URINE MANUAL NEGATIVE (NEGATIVE); GLUCOSE, URINE (UA) MANUAL NEGATIVE (NEGATIVE); KETONE, URINE MANUAL NEGATIVE (NEGATIVE); LEUKOCYTE ESTERASE, URINE MAN POSITIVE (NEGATIVE); NITRITE, URINE MANUAL NEGATIVE (NEGATIVE); PROTEIN, URINE MANUAL NEGATIVE (NEGATIVE); UROBILINOGEN, URINE MANUAL NORMAL (NORMAL)
[2024-08-14 15:31] LABS: BACTERIA, URINE NONE SEEN; HYALINE CAST, URINE NONE SEEN /lpf (0-1); MUCUS, URINE SMALL AMOUNT (NEGATIVE); RBC, URINE 0-1 /hpf (0-3); SQUAMOUS EPITHELIAL CELL URINE SMALL AMOUNT /hpf (SMALL AMT); WBC, URINE 15-20 /hpf (0-3)
== END ==
LOC: M SMT 13:20
PROVIDERS: ATTEND Urology
DX: R39.9 Unspecified symptoms and signs involving the genitourinary system (principal)

== ENCOUNTER → 2024-10-10 | Outpatient (CLI) | payer MEDICARE, MEDICAID ==
[~2024-10-10] MED LIST changes: +GLIP-320 PO; -GLIP10TA18 PO
== END ==
LOC: M WHC 09:50
PROVIDERS: ATTEND Physician Assistant
DX: Z12.31 Encounter for screening mammogram for malignant neoplasm of breast (principal)

== ENCOUNTER → 2024-10-14 | Outpatient (CLI) | payer MEDICARE, MEDICAID ==
[2024-10-14 14:21] LABS: BASO # 0.1 10^3/uL (0.0-0.2); BASO % 0.7 % (0.0-1.0); EOS # 0.2 10^3/uL (0.0-0.5); EOS % 2.1 % (0.0-3.0); HEMOGLOBIN 13.7 g/dl (12.0-15.5); LYMPH # 4.6 10^3/uL (1.5-5.0); LYMPH % 42.8 % (24.0-44.0); MEAN CORPUSCULAR HEMOGLOBIN 29.1 pg (27.0-33.0); MEAN CORPUSCULAR HGB CONC 31.9 g/dl (32.0-36.5); MEAN CORPUSCULAR VOLUME 91.5 fl (80.0-96.0); MONO # 0.7 10^3/uL (0.0-0.8); MONO % 6.8 % (2.0-8.0); NEUTROPHILS # 5.1 10^3/uL (1.5-8.5); NEUTROPHILS % 47.1 % (36.0-66.0); PLATELET COUNT, AUTOMATED 273 10^3/uL (150-450); WHITE BLOOD COUNT 10.7 10^3/uL (4.0-10.0)
[2024-10-14 14:40] LABS: HEMOGLOBIN A1c 6.9 % (4.0-6.0)
[2024-10-14 14:54] LABS: FOLATE > 24.00 NG/ML (>5.4); THYROID STIMULATING HORMONE 3.093 uIU/ML (0.55-4.78)
[2024-10-14 14:57] LABS: VITAMIN B12 LEVEL 1057 PG/ML (211-911)
== END ==
LOC: M PLALAB 09:59
PROVIDERS: ATTEND Physician Assistant
DX: D48.5 Neoplasm of uncertain behavior of skin (principal); E11.9 Type 2 diabetes mellitus without complications

== ENCOUNTER 2025-04-13 10:19 | Inpatient (IN) | payer MEDICARE, MEDICAID ==
[~2025-04-13] VITALS: Ht 162.6 cm; Wt 78.5 kg
[~2025-04-13 10:19] MED LIST changes: -IBUP-1022 PO; +IBUP600T42 PO; +TOPI-257 PO; -TOPI100T9 PO
[2025-04-13 10:52] LABS: BASO # 0.1 10^3/uL (0.0-0.2); BASO % 0.5 % (0.0-1.0); EOS # 0.2 10^3/uL (0.0-0.5); EOS % 1.2 % (0.0-3.0); LYMPH # 2.9 10^3/uL (1.5-5.0); LYMPH % 16.4 % (24.0-44.0); MONO # 1.5 10^3/uL (0.0-0.8); MONO % 8.4 % (2.0-8.0); NEUTROPHILS # 12.8 10^3/uL (1.5-8.5); NEUTROPHILS % 72.9 % (36.0-66.0); PLATELET COUNT, AUTOMATED 316 10^3/uL (150-450)
[2025-04-13 11:23] LABS: ALT/SGPT < 9 U/L (7.0-40); AST/SGOT 38 U/L (<34); CALCIUM LEVEL 8.8 MG/DL (8.3-10.6); CARBON DIOXIDE LEVEL 22 MMOL/L (20-31); CHLORIDE LEVEL 105 MMOL/L (98-107); CREATININE FOR GFR 0.87 MG/DL (0.55-1.30); GLOMERULAR FILTRATION RATE 71.2 (>39); POTASSIUM SERUM 4.4 MMOL/L (3.5-5.1); SODIUM LEVEL 139 MMOL/L (136-145)
[2025-04-13 12:27] LABS: KETONE, URINE AUTO RFX TRACE mg/dL (NEGATIVE); MUCUS, URINE RFX SMALL (NEGATIVE); NITRITE, URINE AUTO RFX NEGATIVE (NEGATIVE); RBC, URINE AUTO RFX 0 /HPF (0-3); SQUAM EPITHELIAL CELL UR AURFX 6 /HPF (0-6); WBC, URINE AUTO RFX 6 /HPF (0-3)
[2025-04-13] MEDS: NS (Normal Saline) 0.9% 1,000 ML IV SCH (12:47)
[2025-04-13] MEDS: MORPHINE 4 MG/ML 1 ML VIAL IV ONE ×2 (12:49→18:15)
[2025-04-13 13:02] LABS: LEUKOCYTE ESTERASE UR AUTO RFX TRACE (NEGATIVE)
[2025-04-13] MEDS: GASTROGRAFIN SOLUTION 30ML PO SCH (13:51)
[2025-04-13] MEDS ORDERED: ISOVUE-370 76% 100 ML VIAL As Ordered ONE (15:26)
[2025-04-13] MEDS: ERTAPENEM SODIUM 1 GM in NS MINI-BAG PLUS 50 ML IV ONE (18:16)
[2025-04-13] MEDS ORDERED: METH-1100 PO (18:59)
[2025-04-13] MEDS ORDERED: SOLI10TA PO (18:59)
[2025-04-13] MEDS ORDERED: RA N1TAB PO (18:59)
[2025-04-13] MEDS ORDERED: VENL75CA47 PO (18:59)
[2025-04-13] MEDS ORDERED: LANTINJ4 SC (18:59)
[2025-04-13] MEDS ORDERED: FOLI1TAB11 PO (18:59)
[2025-04-13] MEDS ORDERED: INSU100I24 INJ (18:59)
[2025-04-13] MEDS ORDERED: SEMA2PEN INJ (18:59)
[2025-04-13] MEDS ORDERED: B-1100TA2 PO (19:00)
[2025-04-13] MEDS ORDERED: HOME MED LIST COMPLETE! XX SCH (19:00)
[2025-04-13] MEDS ORDERED: THERTAB52 PO (19:00)
[2025-04-13] MEDS ORDERED: MORPHINE 2 MG/ML 1 ML VIAL IV PRN (19:00)
[2025-04-13] MEDS ORDERED: GLUCOSE 4 GM CHEW PO PRN (19:35)
[2025-04-13] MEDS ORDERED: DEXTROSE 50% 50 ML SYRINGE IV PRN (19:35)
[2025-04-13] MEDS ORDERED: GLUCAGON INJ 1 MG VIAL SC PRN (19:35)
[2025-04-13] MEDS: LR 1,000 ML IV SCH (20:03)
[2025-04-13] MEDS: CIPROFLOXACIN 400 MG in IV 1 EA IV SCH (20:03)
[2025-04-13 20:47] VITALS: BP 135/69; TEMP 97.7; O2SAT 95
[2025-04-13] MEDS: INSULIN LISPRO (NovoLOG) PER UNIT SC SCH (21:00)
[2025-04-13] MEDS: metroNIDAZOLE 500 MG in IV 1 EA IV SCH (21:52)
[2025-04-13] MEDS: HEPARIN SOD 5000 UNITS/ML 1 ML VIAL/SYRINGE SC SCH (21:53)
[2025-04-13] MEDS: diphenhydrAMINE 50 MG/ML VIAL IV ONE (21:53)
[2025-04-14] VITALS (7 sets, daily range): BP systolic 105–138; BP diastolic 52–67; TEMP 97.5–98.2; O2SAT 93–97
[2025-04-14] MEDS: KETOROLAC 30 MG/ML 1 ML VIAL IV PRN (03:50)
[2025-04-14 07:01] LABS: ALT/SGPT 21.0 U/L (7.0-40); AST/SGOT 19.0 U/L (<34); CALCIUM LEVEL 8.3 MG/DL (8.3-10.6); CARBON DIOXIDE LEVEL 22.0 MMOL/L (20-31); CHLORIDE LEVEL 104.0 MMOL/L (98-107); CREATININE FOR GFR 0.89 MG/DL (0.55-1.30); GLOMERULAR FILTRATION RATE 69.3 (>39); MAGNESIUM LEVEL 1.6 MG/DL (1.8-2.4); POTASSIUM SERUM 4.2 MMOL/L (3.5-5.1); SODIUM LEVEL 138.0 MMOL/L (136-145)
[2025-04-14] MEDS: INSULIN LISPRO (NovoLOG) PER UNIT SC SCH (07:30)
[2025-04-14 08:32] LABS: PLATELET COUNT, AUTOMATED 295 10^3/uL (150-450)
[2025-04-14] MEDS: PANTOPRAZOLE 40MG VIAL IV SCH (08:39)
[2025-04-14] MEDS: diphenhydrAMINE 50 MG/ML VIAL IV PRN (08:39)
[2025-04-14] MEDS: BISACODYL 10 MG SUPP PR ONE (08:44)
[2025-04-14] MEDS: LACTULOSE 20 GM/30 ML SYRUP UDC PO SCH ×2 (09:00→19:00)
[2025-04-14] MEDS: MORPHINE 4 MG/ML 1 ML VIAL IV PRN (09:03)
[2025-04-14] MEDS: MAG SULF 1GM/100ML (MAG RUN) 1 GM in IV 1 EA IV ONE (18:02)
[2025-04-14] MEDS: KETOROLAC 30 MG/ML 1 ML VIAL IV ONE (22:33)
[2025-04-15 03:17] VITALS: BP 148/67; TEMP 98.3; O2SAT 95
[2025-04-15 04:59] LABS: PLATELET COUNT, AUTOMATED 266 10^3/uL (150-450)
[2025-04-15 07:54] VITALS: BP 140/68; TEMP 98.1; O2SAT 96
[2025-04-15] MEDS ORDERED: GASTROGRAFIN SOLUTION 30 ML As Ordered ONE (08:03)
[2025-04-15 12:11] VITALS: BP 141/65; TEMP 97.9; O2SAT 99
[2025-04-15] MEDS: PNEUMOC 21-VAL CONJ-DIP CRM/PF 0.5 ML SYRINGE IM.IMMUN ONE (12:34)
[2025-04-15] MEDS: FLUZONE HIGH DOSE (65+) 0.5 ML SYRINGE (25-26) IM.IMMUN ONE (12:35)
[2025-04-15] MEDS: KETOROLAC 30 MG/ML 1 ML VIAL IV PRN (12:58)
[2025-04-15 15:19] VITALS: BP 126/58; TEMP 97.6; O2SAT 96
[2025-04-15] MEDS: CARBIDOPA/LEVODOPA 25 MG/100 MG PO SCH (17:48)
[2025-04-15 20:01] VITALS: BP 149/66; TEMP 98.1; O2SAT 97
[2025-04-15] MEDS: TOPIRAMATE 100 MG TAB PO SCH (22:00)
[2025-04-15] MEDS: ATORVASTATIN 20 MG TAB PO SCH (22:00)
[2025-04-15] MEDS: VENLAFAXINE **XR** 75MG CAPSULE PO SCH (22:01)
[2025-04-15] MEDS: METOPROLOL SUCC. 25 MG *XL* TAB PO SCH (22:03)
[2025-04-16] VITALS (7 sets, daily range): BP systolic 122–158; BP diastolic 56–80; TEMP 97.2–98.1; O2SAT 94–98
[2025-04-16] MEDS: ACETAMINOPHEN *IV* 1,000 MG in IV 1 EA IV PRN (03:44)
[2025-04-16] MEDS: LEVOTHYROXINE 25 MCG TABLET (0.025MG) PO SCH (05:04)
[2025-04-16 05:50] LABS: PLATELET COUNT, AUTOMATED 336 10^3/uL (150-450)
[2025-04-16] MEDS: FOLIC ACID 1 MG TAB PO SCH (08:22)
[2025-04-16] MEDS: THIAMINE 100 MG TAB PO SCH (08:22)
[2025-04-16] MEDS: LOSARTAN 50 MG TABLET PO SCH (08:32)
[2025-04-16] MEDS: CIPROFLOXACIN 500 MG TABLET PO SCH (17:04)
[2025-04-16] MEDS: diphenhydrAMINE 12.5 MG/5 ML ELIXIR UDC PO ONE (18:09)
[2025-04-16] MEDS: LanTUS (INSULIN GLARGINE INJ) 1 UNITS/0.01 ML SC SCH (20:29)
[2025-04-17 03:14] VITALS: BP 137/65; TEMP 97.8; O2SAT 95
[2025-04-17] MEDS: diphenhydrAMINE 50 MG/ML VIAL IV PRN (05:26)
[2025-04-17 05:41] LABS: PLATELET COUNT, AUTOMATED 282 10^3/uL (150-450)
[2025-04-17 07:22] VITALS: BP 129/63; TEMP 97.6; O2SAT 96
[2025-04-17 08:01] VITALS: BP 129/63
[2025-04-17] MEDS: LACTULOSE 20 GM/30 ML SYRUP UDC PO SCH (08:02)
[2025-04-17] MEDS ORDERED: CIPR500T39 PO (11:31)
[2025-04-17] MEDS ORDERED: MIRA3350 PO (11:31)
[2025-04-17] MEDS ORDERED: METR-265 PO (11:31)
[2025-04-17] MEDS ORDERED: SENN-186 PO (11:31)
== END 2025-04-17 13:10 | disposition home health service (06) | DRG 392 ==
LOC: M ED 10:19 → M ED INP 18:59 → M PCU 20:48
PROVIDERS: ADMIT Student in an Organized Health Care Education/Training Program; ATTEND Student in an Organized Health Care Education/Training Program
DX: K52.89 Other specified noninfective gastroenteritis and colitis (principal); K57.92 Diverticulitis of intestine, part unspecified, without perforation or abscess without bleeding; C18.9 Malignant neoplasm of colon, unspecified; K59.00 Constipation, unspecified; F32.A Depression, unspecified; E11.9 Type 2 diabetes mellitus without complications; E78.5 Hyperlipidemia, unspecified; G20.A1 Parkinson's disease without dyskinesia, without mention of fluctuations; Z88.0 Allergy status to penicillin; Z91.030 Bee allergy status; Z91.040 Latex allergy status; Z88.2 Allergy status to sulfonamides; Z88.8 Allergy status to other drugs, medicaments and biological substances; Z79.899 Other long term (current) drug therapy; Z79.4 Long term (current) use of insulin

== ENCOUNTER 2025-05-07 17:05 | Emergency (ER) | payer MEDICARE, MEDICAID ==
[~2025-05-07] VITALS: Ht 162.6 cm; Wt 73.6 kg
[~2025-05-07 17:05] MED LIST changes: +B-1100TA2 PO; +CIPR500T39 PO; +FOLI1TAB11 PO; +INSU100I24 INJ; +LANTINJ4 SC; +METH-1100 PO; +METR-265 PO; +MIRA3350 PO; +RA N1TAB PO; +SEMA2PEN INJ; +SENN-186 PO; +SOLI10TA PO; +THERTAB52 PO; +VENL75CA47 PO
[2025-05-07 17:16] VITALS: BP 115/66; TEMP 98.7; O2SAT 97
[2025-05-07] MEDS ORDERED: MONT10TA97 (17:20)
[2025-05-07] MEDS ORDERED: TAMS1CAP17 (17:20)
[2025-05-07] MEDS: LIDOCAINE W/EPINEPHrine 1% 20 ML VIAL SC ONE (18:44)
== END 2025-05-07 20:13 | disposition home or self-care (01) ==
LOC: M ED 17:05
DX: S80.211A Abrasion, right knee, initial encounter (principal); S00.03XA Contusion of scalp, initial encounter; W01.198A Fall on same level from slipping, tripping and stumbling with subsequent striking against other object, initial encounter; M47.812 Spondylosis without myelopathy or radiculopathy, cervical region; G43.909 Migraine, unspecified, not intractable, without status migrainosus; I10 Essential (primary) hypertension; G47.30 Sleep apnea, unspecified; K21.9 Gastro-esophageal reflux disease without esophagitis; K57.30 Diverticulosis of large intestine without perforation or abscess without bleeding; E11.9 Type 2 diabetes mellitus without complications; E03.9 Hypothyroidism, unspecified; F41.9 Anxiety disorder, unspecified; F32.A Depression, unspecified; Z79.82 Long term (current) use of aspirin; Z79.02 Long term (current) use of antithrombotics/antiplatelets; Z79.899 Other long term (current) drug therapy; Z88.0 Allergy status to penicillin; Z88.1 Allergy status to other antibiotic agents; Z88.2 Allergy status to sulfonamides; Z88.5 Allergy status to narcotic agent; Z88.8 Allergy status to other drugs, medicaments and biological substances; Z91.030 Bee allergy status; Z91.040 Latex allergy status; Y92.9 Unspecified place or not applicable; Y93.89 Activity, other specified; Y99.9 Unspecified external cause status

== ENCOUNTER 2025-05-14 11:03 | Emergency (ER) | payer MEDICARE, MEDICAID ==
[~2025-05-14] VITALS: Ht 162.6 cm; Wt 70.5 kg
[~2025-05-14 11:03] MED LIST changes: +MONT10TA97; +TAMS1CAP17
[2025-05-14 11:51] VITALS: BP 108/57; TEMP 97.5; O2SAT 99
== END 2025-05-14 11:52 | disposition home or self-care (01) ==
LOC: M ED 11:03
DX: Z48.02 Encounter for removal of sutures (principal)